=== PATIENT | female | born 1980 | race Caucasian/White ===

== ENCOUNTER → 2017-05-18 | Outpatient (CLI) | payer SELFPAY | LOC: OD 15:00 | PROVIDERS: ATTEND Nurse Practitioner Acute Care | DX: M54.5 Low back pain (principal); N30.00 Acute cystitis without hematuria | CPT/HCPCS: 87086; 87088; 87186 ==

== ENCOUNTER 2017-10-26 13:54 | Emergency (ER) | payer BC ==
[2017-10-26] MEDS ORDERED: KETOROLAC TROMETHAMINE INJ/PF 30 MG/1 ML SDV IV ONE (14:25)
[2017-10-26] MEDS ORDERED: ONDANSETRON HCL INJ/PF 4 MG/2 ML SDV IV ONE (15:01)
[2017-10-26 15:03] LABS: ABSOLUTE EOSINOPHILS # (AUTO) 0.1 10^3/uL (0.0-0.6); ABSOLUTE LYMPHOCYTES (AUTO) 2.5 10^3/uL (0.5-4.7); ABSOLUTE MONOCYTES (AUTO) 0.6 10^3/uL (0.1-1.4); ABSOLUTE NEUT (AUTO) 4.3 10^3/uL (1.7-8.2); BASOPHILS % (AUTO) 0.6 % (0-2); EOSINOPHILS % (AUTO) 1.7 % (0-6); HEMATOCRIT 41.6 % (36.0-47.0); HEMOGLOBIN 14.2 g/dL (12.0-15.5); MEAN CORPUSCULAR HEMOGLOBIN 31.7 pg (27.0-33.4); MEAN CORPUSCULAR VOLUME 93 fl (80-97); MONOCYTES % (AUTO) 8.3 % (3-13); PLATELET COUNT 220 10^3/uL (150-450); RED BLOOD COUNT 4.47 10^6/uL (3.72-5.28); SEGMENTED NEUTROPHILS % (AUTO) 56.4 % (42-78); TOTAL CELLS COUNTED % (AUTO) 100 %; WHITE BLOOD COUNT 7.6 10^3/uL (4.0-10.5)
[2017-10-26] MEDS ORDERED: HYDROMORPHONE HCL INJ/PF 2 MG/ML AMPULE IV ONE (15:27)
[2017-10-26 15:29] LABS: ALANINE AMINOTRANSFERASE 23 U/L (9-52); ALBUMIN 4.9 g/dL (3.5-5.0); ALKALINE PHOSPHATASE 58 U/L (38-126); ANION GAP 13 (5-19); ASPARTATE AMINO TRANSFERASE 16 U/L (14-36); BILIRUBIN,DIRECT 0.3 mg/dL (0.0-0.4); BILIRUBIN,TOTAL 0.4 mg/dL (0.2-1.3); BLOOD UREA NITROGEN 16 mg/dL (7-20); CALCIUM 10.3 mg/dL (8.4-10.2); CARBON DIOXIDE 24 mmol/L (22-30); CHLORIDE 107 mmol/L (98-107); GLUCOSE 105 mg/dL (75-110); POTASSIUM 4.3 mmol/L (3.6-5.0); SODIUM 143.7 mmol/L (137-145)
[2017-10-26] MEDS ORDERED: NORMAL SALINE 1000 ML 1,000 ML IV ONE (15:29)
--- NOTE | 2017-10-26 15:29 | ER Document Report ---
ED GI/ - General Chief Complaint: Flank Pain Stated Complaint: FLANK PAIN Time Seen by Provider: 10/26/17 14:24 Mode of Arrival: Ambulatory Information source: Patient Notes: Patient presents complaining of left flank pain that radiates around to left side that started yesterday. Patient states today around 11 AM the pain came very severe which prompted her to have a syncopal episode. Patient states that whenever she has had very severe pain in the past it is caused her to faint previously. Patient also reports nausea and vomiting 3 episodes. Patient states she had diarrhea yesterday. Patient reports decreased urine output. Patient denies any fever. Patient does report some dizziness intermittently. Patient also reports having chest pain that she describes as occasional shocks that lasts for about 2-3 minutes that started yesterday evening. Patient denies any history of coronary artery disease. Patient has a history of kidney stones and suspects the same today. TRAVEL OUTSIDE OF THE [place] IN LAST 30 DAYS: No - HPI Patient complains to provider of: Abdominal pain, Flank pain Onset: Yesterday Timing/Duration: Persistent Quality of pain: Sharp Pain Level: 5 Location: LLQ, Left flank Vaginal bleeding (Compared to normal period): None Associated symptoms: Chest pain, Diarrhea, Dizzy, Nausea, Vomiting. denies: Urinary hesitancy, Urinary frequency, Urinary retention, Urinary urgency Exacerbated by: Denies Relieved by: Denies Similar symptoms previously: Yes - Kidney stones Recently seen / treated by doctor: No - Related Data Allergies/Adverse Reactions: No Known Allergies Allergy (Verified 12/10/13 15:46) Home Medications: ibuprofen, multivitamin Past Medical History - General Information source: Patient - Social History Smoking Status: Never Smoker Chew tobacco use (# tins/day): No Frequency of alcohol use: Rare Drug Abuse: None Occupation: [employer] Family History: Reviewed & Not Pertinent, Other - Nephrolithiasis Patient has suicidal ideation: No Patient has homicidal ideation: No - Past Medical History Cardiac Medical History: Denies: Hx Coronary Artery Disease Renal/ Medical History: Reports: Hx Kidney Stones. Denies: Hx Peritoneal Dialysis Psychiatric Medical History: Reports: Hx Depression Past Surgical History: Reports: Hx Genitourinary Surgery - lithrotripsy, Hx Tonsillectomy, Hx Tubal Ligation - Immunizations Immunizations up to date: Yes Hx Diphtheria, Pertussis, Tetanus Vaccination: Yes Review of Systems - Review of Systems Constitutional: No symptoms reported. denies: Fever, Recent illness EENT: No symptoms reported Cardiovascular: Chest pain, Syncope, Dizziness Respiratory: No symptoms reported. denies: Cough, Short of breath Gastrointestinal: Abdominal pain, Diarrhea, Nausea, Vomiting Genitourinary: Flank pain. denies: Dysuria Female Genitourinary: No symptoms reported Musculoskeletal: Back pain Skin: No symptoms reported Hematologic/Lymphatic: No symptoms reported Neurological/Psychological: No symptoms reported Physical Exam - Vital signs Vitals: Temp Pulse Resp BP Pulse Ox 97.9 F 100 20 130/83 H 98 10/26/17 14:02 10/26/17 14:02 10/26/17 14:02 10/26/17 14:02 10/26/17 14:02 - General General appearance: Alert, Anxious In distress: None - HEENT Head: Normocephalic, Atraumatic Eyes: Normal Conjunctiva: Normal Nasal: Normal Mouth/Lips: Normal Pharynx: Normal Neck: Normal, Supple. No: Lymphadenopathy - Respiratory Respiratory status: No respiratory distress Chest status: Nontender. No: Pain with cough, Pain with deep breathing Breath sounds: Normal. No: Rales, Rhonchi, Stridor, Wheezing Chest palpation: Normal. No: Tender, Ecchymosis - Cardiovascular Rhythm: Regular Heart sounds: S1 appreciated, S2 appreciated Murmur: No - Abdominal Inspection: Normal Distension: No distension Bowel sounds: Normal Tenderness: Tender - LLQ Organomegaly: No organomegaly - Back Back: CVA tenderness - left - Extremities General upper extremity: Normal inspection, Normal ROM General lower extremity: Normal inspection, Normal ROM - Neurological Neuro grossly intact: Yes Cognition: Normal Apolinar Coma Scale Eye Opening: Spontaneous Apolinar Coma Scale Verbal: Oriented Apolinar Coma Scale Motor: Obeys Commands [place] Coma Scale Total: 15 - Psychological Associated symptoms: Anxious - Skin Skin Temperature: Warm Skin Moisture: Dry Skin Color: Normal Course - Re-evaluation Re-evalutation: 10/26/17 17:48 Reviewed patient's diagnostic test results with her. Patient tearful stating that she feels as though she is going to be getting a urinary tract infection. Attempted to reassure patient that she has no signs concerning for infection. Patient without any fever, leukocytosis or findings concerning for UTI on urinalysis. Patient continues with left flank tenderness. Patient advised that she does not have any obstructive kidney stones at this time. Patient advised that she does have bilateral renal stones and that she should follow-up with a urologist for further evaluation. Patient nontoxic in appearance, no concern for sepsis. Patient denies any chest pain at this time. The patient has atypical chest pain as the patient's chest pain is not suggestive of pulmonary embolus, cardiac ischemia, aortic dissection, or other serious etiology. Given the extremely low risk of these diagnoses for the test in evaluation for these possibilities does not appear to be indicated at this time. Patient has been instructed to return if the symptoms worsen or change in any way. - Vital Signs Vital signs: Temp Pulse Resp BP Pulse Ox 97.9 F 100 17 118/75 95 10/26/17 14:02 10/26/17 18:32 10/26/17 18:32 10/26/17 18:32 10/26/17 18:32 - Laboratory Result Diagrams: 10/26/17 14:47 10/26/17 14:47 Laboratory results interpreted by me: 10/26/17 14:47 Calcium 10.3 H Labs- Entire Visit 10/26/17 10/26/17 10/26/17 14:47 14:47 14:47 WBC 7.6 RBC 4.47 Hgb 14.2 Hct 41.6 MCV 93 MCH 31.7 MCHC 34.0 RDW 14.0 Plt Count 220 Seg Neutrophils % 56.4 Lymphocytes % 33.0 Monocytes % 8.3 Eosinophils % 1.7 Basophils % 0.6 Absolute Neutrophils 4.3 Absolute Lymphocytes 2.5 Absolute Monocytes 0.6 Absolute Eosinophils 0.1 Absolute Basophils 0.0 Sodium 143.7 Potassium 4.3 Chloride 107 Carbon Dioxide 24 Anion Gap 13 BUN 16 Creatinine 0.91 Est GFR ( Amer) > 60 Est GFR (Non-Af Amer) > 60 Glucose 105 Calcium 10.3 H Total Bilirubin 0.4 Direct Bilirubin 0.3 Neonat Total Bilirubin Not Reportable Neonat Direct Bilirubin Not Reportable Neonat Indirect Bili Not Reportable AST 16 ALT 23 Alkaline Phosphatase 58 Troponin I Total Protein 7.0 Albumin 4.9 Serum HCG, Qual NEGATIVE Urine Color Urine Appearance Urine pH Ur Specific [place] Urine Protein Urine Glucose (UA) Urine Ketones Urine Blood Urine Nitrite Urine Bilirubin Urine Urobilinogen Ur Leukocyte Esterase Urine WBC (Auto) Urine RBC (Auto) Urine Bacteria (Auto) Squamous Epi Cells Auto Urine Mucus (Auto) Urine Ascorbic Acid 10/26/17 10/26/17 14:47 14:47 WBC RBC Hgb Hct MCV MCH MCHC RDW Plt Count Seg Neutrophils % Lymphocytes % Monocytes % Eosinophils % Basophils % Absolute Neutrophils Absolute Lymphocytes Absolute Monocytes Absolute Eosinophils Absolute Basophils Sodium Potassium Chloride Carbon Dioxide Anion Gap BUN Creatinine Est GFR ( Amer) Est GFR (Non-Af Amer) Glucose Calcium Total Bilirubin Direct Bilirubin Neonat Total Bilirubin Neonat Direct Bilirubin Neonat Indirect Bili AST ALT Alkaline Phosphatase Troponin I < 0.012 Total Protein Albumin Serum HCG, Qual Urine Color YELLOW Urine Appearance SLIGHTLY-CLOUDY Urine pH 8.0 Ur Specific Stanford 1.012 Urine Protein NEGATIVE Urine Glucose (UA) NEGATIVE Urine Ketones NEGATIVE Urine Blood NEGATIVE Urine Nitrite NEGATIVE Urine Bilirubin NEGATIVE Urine Urobilinogen NEGATIVE Ur Leukocyte Esterase NEGATIVE Urine WBC (Auto) 3 Urine RBC (Auto) 1 Urine Bacteria (Auto) 1+ Squamous Epi Cells Auto 4 Urine Mucus (Auto) OCC Urine Ascorbic Acid NEGATIVE - Diagnostic Test Radiology reviewed: Reports reviewed Discharge - Discharge Clinical Impression: Flank pain, Renal stone Nausea & vomiting Qualifiers: Vomiting type: unspecified Vomiting Intractability: non-intractable Qualified Code(s): R11.2 - Nausea with vomiting, unspecified Chest pain Qualifiers: Chest pain type: unspecified Qualified Code(s): R07.9 - Chest pain, unspecified Condition: Stable Disposition: HOME, SELF-CARE Instructions: Chest Pain of Unclear Cause ([facility]), Flank Pain ([facility]), Intravenous (IV) Fluids ([facility]), Oral Narcotic Medication ([facility]), Toradol Injection ([facility]), Vomiting ([facility]) Additional Instructions: Return immediately for any new or worsening symptoms Followup with your primary care provider, call tomorrow to make a followup appointment Follow-up with a urologist for further evaluation of renal stones Follow-up with a content designer for further evaluation of chest pain Prescriptions: Hydrocodone/Acetaminophen [[place] 5-325 Tablet] 1 each PO Q4 PRN #10 tablet PRN Reason: Ondansetron HCl [Zofran 4 mg Tablet] 1 - 2 tab PO Q6 PRN #15 tablet PRN Reason: Forms: Return to Work Referrals: [facility] [Provider Group] - Follow up as needed [facility] [Provider Group] - Follow up as needed SEGUNDO KLELY MD [ACTIVE STAFF] - Follow up as needed [facility] [Provider Group] - Follow up as needed
[2017-10-26 15:52] LABS: APPEARANCE,URINE SLIGHTLY-CLOUDY; BILIRUBIN,URINE NEGATIVE (NEGATIVE); COLOR,URINE YELLOW; GLUCOSE, URINE NEGATIVE (NEGATIVE); KETONES,URINE NEGATIVE (NEGATIVE); LEUKOCYTE ESTERASE,URINE NEGATIVE (NEGATIVE); NITRITE,URINE NEGATIVE (NEGATIVE); PROTEIN,URINE NEGATIVE (NEGATIVE); URINE SPECIFIC GRAVITY 1.012; UROBILINOGEN,URINE NEGATIVE mg/dL (<2.0)
--- NOTE | 2017-10-26 16:07 | RADIOLOGY REPORT (SQ) ---
EXAM DESCRIPTION: CT LTD RENAL STONE PROTOCOL ON COMPLETED DATE/TIME: 10/26/2017 3:52 pm REASON FOR STUDY: left flank/abd pain COMPARISON: 03/09/2016. TECHNIQUE: CT scan of the abdomen and pelvis performed without intravenous or oral contrast. Images reviewed with lung, soft tissue, and bone windows. Reconstructed coronal and sagittal MPR images revi ewed. All images stored on PACS. All CT scanners at this facility use dose modulation, iterative reconstruction, and/or weight based d osing when appropriate to reduce radiation dose to as low as reasonably achievable (ALARA). [facility]: Dose Right [facility]: CareDose [facility]: Dose Right [facility]: Teradose 4D [facility]: Smart Photobucket RADIATION DOSE: CT Rad equipment meets quality standard of care and radiation dose reduction techniq ues were employed. CTDIvol: 6.7 mGy. DLP: 362 mGy-cm.mGy. LIMITATIONS: None. FINDINGS: LOWER CHEST: No significant findings. No nodules or infiltrates. NON-CONTRASTED LIVER, SPLEEN, ADRENALS: Evaluation limited by lack of IV contrast. No identified sign ificant masses. PANCREAS: No masses. No peripancreatic inflammatory changes. GALLBLADDER: No identified stones by CT criteria. No inflammatory changes to suggest cholecystitis. RIGHT KIDNEY AND URETER: Areas of cortical scarring. No suspicious masses. Assessment limited by lac k of IV contrast. Several small calyceal calculi. No ureteral calculus. No hydronephrosis or hyd roureter. LEFT KIDNEY AND URETER: No suspicious masses. Assessment limited by lack of IV contrast. Several ca lyceal calculi. No ureteral calculus. No hydronephrosis or hydroureter. AORTA AND RETROPERITONEUM: No aneurysm. No retroperitoneal masses or adenopathy. BOWEL AND PERITONEAL CAVITY: No obvious masses or inflammatory changes. No free fluid. APPENDIX: Normal. PELVIS, BLADDER, AND ABDOMINAL WALL:No abnormal masses. No free fluid. Bladder normal. BONES: No significant findings. OTHER: No other significant finding. IMPRESSION: 1. NONOBSTRUCTING CALYCEAL CALCULI IN BOTH KIDNEYS. NO URETERAL CALCULI OR HYDRONEPHROSIS. AREAS OF CHRONIC CORTICAL SCARRING IN THE RIGHT KIDNEY. 2. NO OTHER SIGNIFICANT OR ACUTE PROCESS IN THE ABDOMEN OR PELVIS. COMMENT: Quality ID # [id number]: Final reports with documentation of one or more dose reduction techniques (e.g., Automated exposure control, adjustment of the mA and/or kV according to patient size, use of iterative reconstruction technique) TECHNICAL DOCUMENTATION: JOB ID: [id number] [employer]- All Rights Reserved Reading location - IP/workstation name: [email or web address]
--- NOTE | 2017-10-26 16:09 | RADIOLOGY REPORT (SQ) ---
EXAM DESCRIPTION: CHEST 2 VIEWS COMPLETED DATE/TIME: 10/26/2017 4:02 pm REASON FOR STUDY: cp COMPARISON: 02/13/2014. EXAM PARAMETERS: NUMBER OF VIEWS: two views TECHNIQUE: Digital Frontal and Lateral radiographic views of the chest acquired. RADIATION DOSE: NA LIMITATIONS: none FINDINGS: LUNGS AND PLEURA: No opacities, masses or pneumothorax. No pleural effusion. MEDIASTINUM AND HILAR STRUCTURES: No masses or contour abnormalities. HEART AND VASCULAR STRUCTURES: Heart normal size. No evidence for failure. BONES: No acute findings. HARDWARE: None in the chest. OTHER: No other significant finding. IMPRESSION: NO ACUTE RADIOGRAPHIC FINDING IN THE CHEST. TECHNICAL DOCUMENTATION: JOB ID: [id number] [employer]- All Rights Reserved Reading location - IP/workstation name: [email or web address]
--- NOTE | 2017-10-26 16:49 | ER Document Report ---
ED Medical Screen (RME) - General Chief Complaint: Flank Pain Stated Complaint: FLANK PAIN Time Seen by Provider: 10/26/17 14:24 Notes: Patient is a 36-year-old female who presents to the emergency department today with complaints of left-sided flank pain. Patient states the pain wraps around to her left lower quadrant. Patient states she has had associated vomiting and nausea with diarrhea and chills. I have greeted and performed a rapid initial assessment of this patient. A comprehensive ED assessment and evaluation of the patient, analysis of test results, and completion of the medical decision making process will be conducted by additional ED providers. Review of systems: Constitutional: No symptoms reported EENT: No symptoms reported Cardiovascular: No symptoms reported Respiratory: No symptoms reported Gastrointestinal: Nausea, Vomiting, and diarrhea Genitourinary: Left flank pain Musculoskeletal: No symptoms reported Skin: No symptoms reported Hematologic/Lymphatic: No symptoms reported Neurological/Psychological: No symptoms reported Yes All other systems reviewed and negative Physical Exam: General: Alert, appears well. HEENT: Normocephalic. Atraumatic. PERRLA. Extraocular movements intact. Oropharynx clear. Neck: Supple. Respiratory: No respiratory distress. Abdominal: Normal Inspection. No distension. Extremities: Moves all four extremities. Neurological: Normal cognition. AAOx4. Normal speech. Psychological: Normal affect. Normal Mood. Skin: Warm. Dry. Normal color. TRAVEL OUTSIDE OF THE [place] IN LAST 30 DAYS: No - Related Data Allergies/Adverse Reactions: No Known Allergies Allergy (Verified 12/10/13 15:46) Home Medications: ibuprofen, multivitamin Past Medical History - Social History Chew tobacco use (# tins/day): No Frequency of alcohol use: Rare Drug Abuse: None - Past Medical History Cardiac Medical History: Reports: Hx Hypercholesterolemia Renal/ Medical History: Reports: Hx Kidney Stones. Denies: Hx Peritoneal Dialysis Psychiatric Medical History: Reports: Hx Depression Past Surgical History: Reports: Hx Genitourinary Surgery - lithrotripsy, Hx Tonsillectomy, Hx Tubal Ligation - Immunizations Immunizations up to date: Yes Hx Diphtheria, Pertussis, Tetanus Vaccination: Yes Physical Exam - Vital signs Vitals: Temp Pulse Resp BP Pulse Ox 97.9 F 100 20 130/83 H 98 10/26/17 14:02 10/26/17 14:02 10/26/17 14:02 10/26/17 14:02 10/26/17 14:02 Course - Vital Signs Vital signs: Temp Pulse Resp BP Pulse Ox 97.9 F 100 20 130/83 H 98 10/26/17 14:02 10/26/17 14:02 10/26/17 14:02 10/26/17 14:02 10/26/17 14:02 - Laboratory Result Diagrams: 10/26/17 14:47 10/26/17 14:47 Laboratory results interpreted by me: 10/26/17 14:47 Calcium 10.3 H
[2017-10-26 18:39] VITALS: BP 118/75
--- NOTE | 2017-10-26 23:02 | EKG REPORT ---
SEVERITY:- NORMAL ECG - SINUS RHYTHM : Confirmed by: Rad Golden 26-Oct-2017 23:01:17
== END 2017-10-26 18:32 | disposition home or self-care (01) ==
LOC: ER 13:54
DX: N20.0 Calculus of kidney (principal); R10.32 Left lower quadrant pain; R11.2 Nausea with vomiting, unspecified; R07.9 Chest pain, unspecified; R19.7 Diarrhea, unspecified; E78.00 Pure hypercholesterolemia, unspecified; Z87.442 Personal history of urinary calculi; Z98.51 Tubal ligation status
CPT/HCPCS: 93005; 99285; 96361; 96374; 96375; 36415; 84703; 85025; 80053; 81001; 84484; 71046; 76380; 93010; J1885; J1170; J2405; J7030

== ENCOUNTER 2018-08-27 17:29 | Emergency (ER) | payer SELFPAY ==
--- NOTE | 2018-08-27 20:37 | ER Document Report ---
ED Medical Screen (RME) - General Chief Complaint: Pelvic Pain Stated Complaint: FEVER, PELVIC PAIN, VAGINAL DISCHARGE Time Seen by Provider: 08/27/18 20:32 Notes: Patient is a 37-year-old female that presents to the emergency department for ief complaint of vaginal bleeding and discharge after colposcopy. Patient states she had this procedure done on , with cervical biopsy, and has been having cramping, and vaginal bleeding and discharge, the bleeding has seemed to slow down, she called the health department they advised her to come to the emergency department.. ROS: Other than noted above, the 12 point review of systems was reviewed with the patient and were negative, all pertinent findings are included in the HPI. PHYSICAL EXAMINATION: Vital signs reviewed. GENERAL: Well-appearing, well-nourished and in no acute distress. HEAD: Atraumatic, normocephalic. EYES: Pupils equal round extraocular movements intact, conjunctiva are normal. ENT: Nares patent NECK: Normal range of motion CV: Heart regular rate and rhythm LUNGS: No respiratory distress Musculoskeletal: Normal range of motion NEUROLOGICAL: Normal speech PSYCH: Normal mood, normal affect. MDM: Patient seen and examined for rapid initial assessment. Vital signs reviewed. A comprehensive ED assessment and evaluation of the patient, analysis of test results and completion of the medical decision making process will be conducted by additional ED providers. *Note is created using voice recognition software and may contain spelling, syntax or grammatical errors. TRAVEL OUTSIDE OF THE [place] IN LAST 30 DAYS: No - Related Data Allergies/Adverse Reactions: No Known Allergies Allergy (Verified 12/10/13 15:46) Past Medical History - Past Medical History Cardiac Medical History: Reports: Hx Hypercholesterolemia Denies: Hx Coronary Artery Disease Renal/ Medical History: Reports: Hx Kidney Stones. Denies: Hx Peritoneal Dialysis Psychiatric Medical History: Reports: Hx Depression Past Surgical History: Reports: Hx Genitourinary Surgery - lithrotripsy, Hx Tonsillectomy, Hx Tubal Ligation - Immunizations Immunizations up to date: Yes Hx Diphtheria, Pertussis, Tetanus Vaccination: Yes Physical Exam - Vital signs Vitals: Temp Pulse Resp BP Pulse Ox 98.5 F 65 16 116/58 L 99 08/27/18 18:30 08/27/18 18:30 08/27/18 18:30 08/27/18 18:30 08/27/18 18:30 Course - Vital Signs Vital signs: Temp Pulse Resp BP Pulse Ox 98.5 F 65 16 116/58 L 99 08/27/18 18:30 08/27/18 18:30 08/27/18 18:30 08/27/18 18:30 08/27/18 18:30
[2018-08-27] MEDS ORDERED: KETOROLAC TROMETHAMINE 60 MG/2 ML SDV IM ONE (20:38)
[2018-08-27 23:21] LABS: ABSOLUTE BASOPHILS # (AUTO) 0.1 10^3/uL (0.0-0.2); ABSOLUTE EOSINOPHILS # (AUTO) 0.3 10^3/uL (0.0-0.6); ABSOLUTE LYMPHOCYTES (AUTO) 2.8 10^3/uL (0.5-4.7); ABSOLUTE MONOCYTES (AUTO) 0.6 10^3/uL (0.1-1.4); ABSOLUTE NEUT (AUTO) 4.6 10^3/uL (1.7-8.2); BASOPHILS % (AUTO) 1.2 % (0-2); HEMATOCRIT 38.6 % (36.0-47.0); HEMOGLOBIN 13.2 g/dL (12.0-15.5); LYMPHOCYTES % (AUTO) 33.8 % (13-45); MEAN CORPUSCULAR HEMOGLOBIN 32.6 pg (27.0-33.4); MEAN CORPUSCULAR HGB CONC 34.2 g/dL (32.0-36.0); MEAN CORPUSCULAR VOLUME 95 fl (80-97); MONOCYTES % (AUTO) 7.6 % (3-13); PLATELET COUNT 198 10^3/uL (150-450); RED BLOOD COUNT 4.05 10^6/uL (3.72-5.28); RED CELL DISTRIBUTION WIDTH 14.5 % (11.5-14.0); SEGMENTED NEUTROPHILS % (AUTO) 54.4 % (42-78); TOTAL CELLS COUNTED % (AUTO) 100 %; WHITE BLOOD COUNT 8.4 10^3/uL (4.0-10.5)
[2018-08-27 23:22] LABS: APPEARANCE,URINE CLOUDY; BILIRUBIN,URINE NEGATIVE (NEGATIVE); COLOR,URINE YELLOW; GLUCOSE, URINE NEGATIVE (NEGATIVE); KETONES,URINE TRACE mg/dL (NEGATIVE); LEUKOCYTE ESTERASE,URINE MODERATE (NEGATIVE); NITRITE,URINE NEGATIVE (NEGATIVE); PROTEIN,URINE NEGATIVE (NEGATIVE); URINE SPECIFIC GRAVITY 1.023; UROBILINOGEN,URINE NEGATIVE mg/dL (<2.0)
[2018-08-27 23:36] LABS: ALANINE AMINOTRANSFERASE 24 U/L (9-52); ALBUMIN 4.3 g/dL (3.5-5.0); ALKALINE PHOSPHATASE 53 U/L (38-126); ANION GAP 8 (5-19); ASPARTATE AMINO TRANSFERASE 17 U/L (14-36); BILIRUBIN,DIRECT 0.1 mg/dL (0.0-0.4); BILIRUBIN,TOTAL 0.4 mg/dL (0.2-1.3); BLOOD UREA NITROGEN 20 mg/dL (7-20); CALCIUM 9.7 mg/dL (8.4-10.2); CARBON DIOXIDE 27 mmol/L (22-30); CHLORIDE 105 mmol/L (98-107); GLUCOSE 117 mg/dL (75-110); POTASSIUM 3.9 mmol/L (3.6-5.0); SODIUM 139.8 mmol/L (137-145); TOTAL PROTEIN 6.4 g/dL (6.3-8.2)
--- NOTE | 2018-08-28 00:28 | RADIOLOGY REPORT (SQ) ---
EXAM DESCRIPTION: US TRANSVAGINAL COMPLETED DATE/TME: 08/27/2018 22:53 CLINICAL HISTORY: 37 years, Female, Pelvic pain COMPARISON:None. TECHNIQUE: Grayscale and Doppler sonogram of the pelvis. Transvaginal technique was used for better evaluation of the pelvic viscera FINDINGS: The uterus measures 8.4 x 5.8 x 4.9 cm. There is mild diffuse heterogeneous appearance of the myometrium. There is a round nearly well-defined hypoechoic area in the lower uterine segment/cervix measuring approximately 1.6 x 1.4 x 1.2 cm. Endometrial stripe: 6 mm in thickness, normal. Right ovary: Measures 3.9 x 2.5 x 2.1 cm. Normal doppler flow. No mass lesion. Left ovary: Measures 3 x 2.2 x 2.1 cm. Normal doppler flow. No mass lesion. Free fluid: None. IMPRESSION: Round fairly well-defined hypoechoic area in the lower uterine segment probably represents a fibroid. There is mild diffuse heterogeneous appearance of the uterus. No defined fluid collections.
[2018-08-28] MEDS ORDERED: MORPHINE SULFATE 10 MG/ML INJ IV ONE (01:51)
[2018-08-28] MEDS ORDERED: MORPHINE SULFATE 10 MG/ML INJ IM ONE (01:56)
[2018-08-28 02:31] LABS: T.VAGINALIS (WET MOUNT) NO TRICHOMONAS SEEN; WBCS (WET MOUNT) 1+ WBCS SEEN; YEAST (WET MOUNT) NO YEAST SEEN
[2018-08-28 02:32] LABS: EPITHELIALS (WET MOUNT) 3+ EPITHELIALS SEEN; RBCS (WET MOUNT) NO RBCS SEEN
--- NOTE | 2018-08-28 03:21 | ER Document Report ---
ED GI/ - General Chief Complaint: Pelvic Pain Stated Complaint: FEVER, PELVIC PAIN, VAGINAL DISCHARGE Time Seen by Provider: 08/28/18 01:31 Mode of Arrival: Ambulatory Information source: Patient Notes: HISTORY OF PRESENT ILLNESS: Patient is a 37-year-old female with a past medical history of recent colposcopy with cervical biopsy approximately 4-5 days ago who presents with lower abdomin al cramping as well as vaginal discharge. Location: Lower pelvic Onset: Gradual Provocation: None Quality: Cramping Radiation: None Severity: Mild to moderate Timing: Constant LMP: 2 weeks ago Vaginal bleeding: None History of STD: None REVIEW OF SYSTEMS: CONSTITUTIONAL : Denies fever or chills, no sweats. Denies recent illness. EENT: Denies eye, ear, throat, or mouth pain or symptoms. Denies nasal or sinus congestion. CARDIOVASCULAR: Denies chest pain. RESPIRATORY: Denies cough, cold, or chest congestion. Denies shortness of breath, difficulty breathing, or wheezing. GASTROINTESTINAL: Denies abdominal pain. Denies nausea, vomiting, or diarrhea. Denies constipation. GENITOURINARY: Denies difficulty urinating, painful urination, burning, frequency, or blood in urine. Positive for vaginal discharge but negative for vaginal bleeding, abnormal or irregular periods. MUSCULOSKELETAL: Denies neck or back pain or joint pain or swelling. SKIN: Denies rash or skin lesions. HEMATOLOGIC : Denies easy bruising or bleeding. LYMPHATIC: Denies swollen, enlarged glands. NEUROLOGICAL: Denies altered mental status or loss of consciousness. Denies headache. Denies weakness or paralysis or loss of use of either side. Denies problems with gait or speech. Denies sensory or motor loss. PSYCHIATRIC: Denies anxiety or stress or depression. All other systems reviewed and negative. PHYSICAL EXAMINATION: GENERAL: Well-appearing, well-nourished and in no acute distress. HEAD: Atraumatic, normocephalic. No scalp deformity, depression, or crepitance. EYES: Pupils are 3 mm and equal/round/reactive to light, extraocular movements intact, sclera anicteric, conjunctiva are normal. ENT: Nares patent bilaterally, oropharynx clear without exudates or palatal petechia. Moist mucous membranes. No tonsil hypertrophy. NECK: Normal range of motion, supple without lymphadenopathy. LUNGS: Breath sounds present, equal, and clear to auscultation bilaterally. No wheezes, rales, or rhonchi. HEART: Regular rate and rhythm without murmurs, rubs, or gallops. 2+ peripheral pulses. Normal capillary refill. ABDOMEN: Soft, nontender, nondistended. Normoactive bowel sounds. No guarding, no rebound. No masses appreciated. BACK: Normal contour, no midline tenderness. Rectal exam deferred. PELVC: Normal external genitalia, no lesions, closed cervical loss was slightly friable areas and clear discharge, no bleeding. EXTREMITIES: Normal range of motion, no pitting or edema. No cyanosis. NEUROLOGICAL: No focal neurological deficits. Moves all extremities spontaneously and on command. PSYCH: Normal mood, normal affect. No suicidal thoughts/ideations. No homocidal thoughts/ideations. No hallucinations. SKIN: Warm, dry, normal turgor, no rashes or lesions noted. ASSESSMENT AND PLAN: This patient is a 37-year-old female who presents with vaginal discharge 5 days after colposcopy with cervical biopsy. 1. Will labs, urine, wet prep/GC/Chlamydia, pelvic ultrasound, and reassess. 2. Will give IV morphine for pain control. TRAVEL OUTSIDE OF THE [place] IN LAST 30 DAYS: No - Related Data Allergies/Adverse Reactions: No Known Allergies Allergy (Verified 12/10/13 15:46) Past Medical History - General Information source: Patient - Social History Smoking Status: Current Every Day Smoker Chew tobacco use (# tins/day): No Drug Abuse: None Lives with: Family Family History: Reviewed & Not Pertinent, Other - Nephrolithiasis Patient has suicidal ideation: No Patient has homicidal ideation: No - Past Medical History Cardiac Medical History: Reports: Hx Hypercholesterolemia Denies: Hx Coronary Artery Disease Pulmonary Medical History: Reports: None EENT Medical History: Reports: None Neurological Medical History: Reports: None Endocrine Medical History: Reports: None Renal/ Medical History: Reports: Hx Kidney Stones. Denies: Hx Peritoneal Dialysis Malignancy Medical History: Reports: None GI Medical History: Reports: None Musculoskeletal Medical History: Reports None Skin Medical History: Reports None Psychiatric Medical History: Reports: Hx Depression Traumatic Medical History: Reports: None Infectious Medical History: Reports: None Past Surgical History: Reports: Hx Genitourinary Surgery - lithrotripsy, Hx Tonsillectomy, Hx Tubal Ligation - Immunizations Immunizations up to date: Yes Hx Diphtheria, Pertussis, Tetanus Vaccination: Yes Physical Exam - Vital signs Vitals: Temp Pulse Resp BP Pulse Ox 98.5 F 65 16 116/58 L 99 08/27/18 18:30 08/27/18 18:30 08/27/18 18:30 08/27/18 18:30 08/27/18 18:30 Course - Re-evaluation Re-evalutation: 08/28/18 04:10 Ultrasound does not show evidence of abscess or other intrauterine pathology other than a simple fibroid. Wet prep is negative for trichomoniasis, gonorrhea, and chlamydia. Patient will be discharged home with return precautions and follow-up with her [facility]PERATOR. Patient voices both understanding and agreeing with the plan. - Vital Signs Vital signs: Temp Pulse Resp BP Pulse Ox 98.0 F 62 15 98/47 L 97 08/28/18 00:20 08/28/18 00:20 08/28/18 00:20 08/28/18 00:20 08/28/18 00:20 - Laboratory Result Diagrams: 08/27/18 23:12 08/27/18 23:12 Laboratory results interpreted by me: 08/27/18 08/27/18 08/27/18 21:05 23:12 23:12 RDW 14.5 H Glucose 117 H Urine Ketones TRACE H Urine Blood LARGE H Ur Leukocyte Esterase MODERATE H - Diagnostic Test Radiology reviewed: Image reviewed, Reports reviewed Discharge - Discharge Clinical Impression: Vaginal discharge Condition: Good Disposition: HOME, SELF-CARE Instructions: Pelvic Pain ([facility]) Additional Instructions: You have been evaluated in the Emergency Department for pelvic pain and discharge. All of your labs, and an ultrasound, have been normal. This could be related to your recent procedure, therefore you will be provided with medications and will need to follow-up with your [facility]PER[facility] as soon as you can. Return to the Emergency Department if you experience worsening pain, worsening discharge, high fevers, or any other concerning symptoms. Prescriptions: Tramadol HCl [Ultram 50 mg Tablet] 50 mg PO Q6HP PRN #28 tablet PRN Reason: Doxycycline Hyclate 100 mg PO BID #20 capsule Print Language: Faroese
[2018-08-28 03:55] LABS: CHLAM PCR NOT DETECTED (NOT DETECT); GON PCR NOT DETECTED (NOT DETECT)
[2018-08-28 04:32] VITALS: BP 101/60
== END 2018-08-28 04:31 | disposition home or self-care (01) ==
LOC: ER 17:29
DX: N89.8 Other specified noninflammatory disorders of vagina (principal); D25.9 Leiomyoma of uterus, unspecified; R10.2 Pelvic and perineal pain; F17.200 Nicotine dependence, unspecified, uncomplicated; Z98.890 Other specified postprocedural states; Z87.442 Personal history of urinary calculi
CPT/HCPCS: 99284; 96372; 36415; 87210; 85025; 80053; 81001; 87491; 87591; 76830; J1885; J2270

== ENCOUNTER → 2018-09-07 | Outpatient (CLI) | payer SELFPAY ==
[2018-09-07 12:16] LABS: HEMOGLOBIN 13.4 g/dL (12.0-15.5); MEAN CORPUSCULAR HEMOGLOBIN 32.4 pg (27.0-33.4); MEAN CORPUSCULAR HGB CONC 34.4 g/dL (32.0-36.0); MEAN CORPUSCULAR VOLUME 94 fl (80-97); PLATELET COUNT 199 10^3/uL (150-450); RED BLOOD COUNT 4.13 10^6/uL (3.72-5.28); RED CELL DISTRIBUTION WIDTH 14.8 % (11.5-14.0)
[2018-09-07 12:21] LABS: WHITE BLOOD COUNT 5.9 10^3/uL (4.0-10.5)
[2018-09-07 12:34] LABS: ANION GAP 8 (5-19); BLOOD UREA NITROGEN 12 mg/dL (7-20); CARBON DIOXIDE 25 mmol/L (22-30); CHLORIDE 110 mmol/L (98-107); GLUCOSE 95 mg/dL (75-110); POTASSIUM 4.5 mmol/L (3.6-5.0); SODIUM 142.6 mmol/L (137-145)
== END ==
LOC: LAB 12:01
PROVIDERS: ATTEND Nurse Practitioner Primary Care
DX: N12 Tubulo-interstitial nephritis, not specified as acute or chronic (principal)
CPT/HCPCS: 36415; 80048; 85027

== ENCOUNTER 2018-10-01 21:36 | Emergency (ER) | payer SELFPAY ==
[2018-10-01] MEDS ORDERED: FENTANYL CITRATE INJ/PF 100 MCG/2 ML AMPUL IV ONE (22:07)
[2018-10-01] MEDS ORDERED: ONDANSETRON HCL INJ/PF 4 MG/2 ML SDV IV ONE (22:07)
--- NOTE | 2018-10-01 22:10 | ER Document Report ---
ED Medical Screen (RME) - General Chief Complaint: Possible Kidney Stone Stated Complaint: FLANK PAIN Time Seen by Provider: 10/01/18 22:06 Primary Care Provider: LEELEE GUERRA FNP-C [Primary Care Provider] - Follow up as needed Notes: Extensive history of kidney stones, stated has L flank pain, nausea, vomiting. ABX 2 weeks ago for UTI. I have greeted and performed a rapid initial assessment of this patient. A comprehensive ED assessment and evaluation of the patient, analysis of test results and completion of the medical decision making process will be conducted by additional ED providers. TRAVEL OUTSIDE OF THE [place] IN LAST 30 DAYS: No - Related Data Allergies/Adverse Reactions: No Known Allergies Allergy (Verified 12/10/13 15:46) Past Medical History - Past Medical History Cardiac Medical History: Reports: Hx Hypercholesterolemia Denies: Hx Coronary Artery Disease Renal/ Medical History: Reports: Hx Kidney Stones. Denies: Hx Peritoneal Dialysis Psychiatric Medical History: Reports: Hx Depression Past Surgical History: Reports: Hx Genitourinary Surgery - lithrotripsy, Hx Tonsillectomy, Hx Tubal Ligation - Immunizations Immunizations up to date: Yes Hx Diphtheria, Pertussis, Tetanus Vaccination: Yes Doctor's Discharge - Discharge Referrals: LEELEE GUERRA FNP-C [Primary Care Provider] - Follow up as needed
[2018-10-02] MEDS ORDERED: FENTANYL CITRATE INJ/PF 100 MCG/2 ML AMPUL ONE (00:22)
[2018-10-02] MEDS ORDERED: ONDANSETRON HCL INJ/PF 4 MG/2 ML SDV ONE (00:23)
[2018-10-02 00:30] LABS: ABSOLUTE BASOPHILS # (AUTO) 0.1 10^3/uL (0.0-0.2); ABSOLUTE EOSINOPHILS # (AUTO) 0.2 10^3/uL (0.0-0.6); ABSOLUTE LYMPHOCYTES (AUTO) 2.9 10^3/uL (0.5-4.7); ABSOLUTE MONOCYTES (AUTO) 0.7 10^3/uL (0.1-1.4); ABSOLUTE NEUT (AUTO) 6.1 10^3/uL (1.7-8.2); BASOPHILS % (AUTO) 0.6 % (0-2); EOSINOPHILS % (AUTO) 1.7 % (0-6); HEMATOCRIT 39.1 % (36.0-47.0); HEMOGLOBIN 13.4 g/dL (12.0-15.5); LYMPHOCYTES % (AUTO) 29.1 % (13-45); MEAN CORPUSCULAR HEMOGLOBIN 32.3 pg (27.0-33.4); MEAN CORPUSCULAR HGB CONC 34.4 g/dL (32.0-36.0); MEAN CORPUSCULAR VOLUME 94 fl (80-97); MONOCYTES % (AUTO) 7.2 % (3-13); PLATELET COUNT 243 10^3/uL (150-450); RED BLOOD COUNT 4.17 10^6/uL (3.72-5.28); RED CELL DISTRIBUTION WIDTH 14.5 % (11.5-14.0); SEGMENTED NEUTROPHILS % (AUTO) 61.4 % (42-78); TOTAL CELLS COUNTED % (AUTO) 100 %; WHITE BLOOD COUNT 9.9 10^3/uL (4.0-10.5)
--- NOTE | 2018-10-02 00:34 | RADIOLOGY REPORT (SQ) ---
EXAM DESCRIPTION: US RETROPERITONEUM COMPLETED DATE/TME: 10/01/2018 22:07 CLINICAL HISTORY: 37 years Female, left flank Comparison: CT, no contrast, October 26, 2017. LIMITATIONS: None. FINDINGS: Indeterminate 3.5 x 2.5 x 2.6 cm prominence of the interpolar right kidney. Cannot exclude an underlying neoplasm. Recommend multiphase contrast CT or MRI of the kidneys. 9 cm right kidney, 12 cm left kidney, bilateral small nephrolithiasis, right renal cortical scar, and urinary bladder appear otherwise unremarkable. IMPRESSION: 1. Indeterminate 3.5 x 2.5 x 2.6 cm prominence of the interpolar right kidney. Cannot exclude an underlying neoplasm. Recommend multiphase contrast CT or MRI of the kidneys. 2. Bilateral nephrolithiasis.
[2018-10-02 00:46] LABS: ALANINE AMINOTRANSFERASE 19 U/L (9-52); ALBUMIN 4.5 g/dL (3.5-5.0); ALKALINE PHOSPHATASE 70 U/L (38-126); ANION GAP 9 (5-19); ASPARTATE AMINO TRANSFERASE 17 U/L (14-36); BILIRUBIN,DIRECT 0.2 mg/dL (0.0-0.4); BILIRUBIN,TOTAL 0.2 mg/dL (0.2-1.3); BLOOD UREA NITROGEN 17 mg/dL (7-20); CALCIUM 10.4 mg/dL (8.4-10.2); CARBON DIOXIDE 26 mmol/L (22-30); CHLORIDE 105 mmol/L (98-107); GLUCOSE 124 mg/dL (75-110); POTASSIUM 3.9 mmol/L (3.6-5.0); SODIUM 140.3 mmol/L (137-145); TOTAL PROTEIN 7.2 g/dL (6.3-8.2)
[2018-10-02] MEDS ORDERED: FENTANYL CITRATE INJ/PF 100 MCG/2 ML AMPUL IV ONE (03:19)
[2018-10-02 03:56] LABS: APPEARANCE,URINE TURBID; BILIRUBIN,URINE NEGATIVE (NEGATIVE); COLOR,URINE YELLOW; GLUCOSE, URINE NEGATIVE (NEGATIVE); KETONES,URINE NEGATIVE (NEGATIVE); LEUKOCYTE ESTERASE,URINE LARGE (NEGATIVE); NITRITE,URINE NEGATIVE (NEGATIVE); PROTEIN,URINE 100 mg/dL (NEGATIVE); URINE SPECIFIC GRAVITY 1.024; UROBILINOGEN,URINE NEGATIVE mg/dL (<2.0)
[2018-10-02] MEDS ORDERED: KETOROLAC TROMETHAMINE INJ/PF 30 MG/1 ML SDV IV ONE (07:03)
[2018-10-02] MEDS ORDERED: ONDANSETRON HCL INJ/PF 4 MG/2 ML SDV IV ONE (07:03)
[2018-10-02] MEDS ORDERED: MORPHINE SULFATE 10 MG/ML INJ IV ONE (07:03)
--- NOTE | 2018-10-02 07:25 | ER Document Report ---
ED General - General Chief Complaint: Possible Kidney Stone Stated Complaint: FLANK PAIN Time Seen by Provider: 10/01/18 22:06 Primary Care Provider: LEELEE GUERRA FNP-C [NO LOCAL MD] - Follow up as needed TRAVEL OUTSIDE OF THE [place] IN LAST 30 DAYS: No - HPI Patient complains to provider of: Right flank pain Notes: Patient coming in with a history of kidney stones and also UTIs. Patient was seen by provider in triage his notes provided below Extensive history of kidney stones, stated has L flank pain, nausea, vomiting. ABX 2 weeks ago for UTI. Patient states he continues to have some slight nausea hematuria and flank pain. Patient denies any fevers chills. Patient otherwise states she is feeling crappy. Patient is resting comfortably upon my evaluation no signs of any obvious distress. Patient states she has complained of all of her antibiotic courses not have a PCP at this time follows up with a [facility] [place] [facility] does not have a urologist. - Related Data Allergies/Adverse Reactions: No Known Allergies Allergy (Verified 12/10/13 15:46) Past Medical History - Social History Smoking Status: Current Every Day Smoker Chew tobacco use (# tins/day): No Frequency of alcohol use: Occasional Drug Abuse: None Family History: Reviewed & Not Pertinent, Other - Nephrolithiasis Patient has suicidal ideation: No Patient has homicidal ideation: No - Past Medical History Cardiac Medical History: Reports: Hx Hypercholesterolemia Denies: Hx Coronary Artery Disease Renal/ Medical History: Reports: Hx Kidney Stones. Denies: Hx Peritoneal Dialysis Psychiatric Medical History: Reports: Hx Depression Past Surgical History: Reports: Hx Genitourinary Surgery - lithrotripsy, Hx Tonsillectomy, Hx Tubal Ligation - Immunizations Immunizations up to date: Yes Hx Diphtheria, Pertussis, Tetanus Vaccination: Yes Review of Systems - Review of Systems Constitutional: No symptoms reported EENT: No symptoms reported Cardiovascular: No symptoms reported Respiratory: No symptoms reported Gastrointestinal: No symptoms reported Genitourinary: Flank pain Female Genitourinary: No symptoms reported Musculoskeletal: No symptoms reported Skin: No symptoms reported Hematologic/Lymphatic: No symptoms reported Neurological/Psychological: No symptoms reported -: Yes All other systems reviewed and negative Physical Exam - Vital signs Vitals: Temp Pulse Resp BP Pulse Ox 98.2 F 87 21 H 113/81 95 10/01/18 22:08 10/01/18 22:08 10/01/18 22:08 10/01/18 22:08 10/01/18 22:08 Interpretation: Normal - General General appearance: Appears well, Alert - HEENT Head: Normocephalic, Atraumatic Eyes: Normal Pupils: PERRL - Respiratory Respiratory status: No respiratory distress Chest status: Nontender Breath sounds: Normal Chest palpation: Normal - Cardiovascular Rhythm: Regular Heart sounds: Normal auscultation Murmur: No - Abdominal Inspection: Normal Distension: No distension Bowel sounds: Normal Tenderness: Nontender Organomegaly: No organomegaly - Back Back: Normal, Nontender - Extremities General upper extremity: Normal inspection, Nontender, Normal color, Normal ROM, Normal temperature General lower extremity: Normal inspection, Nontender, Normal color, Normal ROM, Normal temperature, Normal weight bearing. No: Sofie's sign - Neurological Neuro grossly intact: Yes Cognition: Normal Orientation: AAOx4 Apolinar Coma Scale Eye Opening: Spontaneous Apolinar Coma Scale Verbal: Oriented [place] Coma Scale Motor: Obeys Commands [place] Coma Scale Total: 15 Speech: Normal Motor strength normal: LUE, RUE, LLE, RLE Sensory: Normal - Psychological Associated symptoms: Normal affect, Normal mood - Skin Skin Temperature: Warm Skin Moisture: Dry Skin Color: Normal Course - Re-evaluation Re-evalutation: 10/02/18 13:12 The patient presents with flank pain without signs of peritonitis or other life-threatening or serious etiology. The patient appears stable for discharge and has been instructed to return immediately if the symptoms worsen in any way, or in 8-12hr if not improved for re-evaluation. The patient has been instructed to return if the symptoms worsen or change in any way. Ultrasounds not show any signs of hydronephrosis does show signs of bilateral nephrolithiasis. Patient does have blood in the urine however the sample is contaminated. No fevers no significant white count. Do believe patient more has possibly passed a small kidney stone. Patient will be given pain medications for home did recommend patient follow-up with her medical clinic information was given to our social worker aide to help the patient establish urology care. 10/02/18 13:13 - Vital Signs Vital signs: Temp Pulse Resp BP Pulse Ox 97.9 F 58 L 16 103/60 99 10/02/18 08:15 10/02/18 08:15 10/02/18 08:15 10/02/18 08:15 10/02/18 08:15 - Laboratory Result Diagrams: 10/02/18 00:10 10/02/18 00:10 Laboratory results interpreted by me: 10/02/18 10/02/18 10/02/18 00:10 00:10 03:30 RDW 14.5 H Glucose 124 H Calcium 10.4 H Urine Protein 100 H Urine Blood MODERATE H Ur Leukocyte Esterase LARGE H Discharge - Discharge Clinical Impression: Bilateral nephrolithiasis, Flank pain Condition: Good Instructions: Flank Pain ([facility]), Kidney Stone ([facility]) Additional Instructions: Your ultrasound shows signs of kidney stones in both your kidneys however no signs of an obstructing kidney stone. Urine does have blood in it which may be signs of possible passage of a kidney stone. At this time there is no signs of action or any other worrisome pathology no signs of renal failure. I recommend taking Tylenol Motrin for pain control the Ultram as prescribed for severe pain he may use the Phenergan for nausea I will give your information to our social worker aide to help establish follow-up care return to the ER symptoms worsen follow- up with your primary care. Prescriptions: Ibuprofen [Motrin 600 mg Tablet] 600 mg PO Q8HP PRN #21 tablet PRN Reason: Promethazine HCl [Phenergan 25 mg Tablet] 25 mg PO Q6 #30 tablet Tramadol HCl [Ultram 50 mg Tablet] 50 mg PO ASDIR PRN #20 tablet PRN Reason: Forms: Return to Work Referrals: LEELEE GUERRA FNP-C [NO LOCAL MD] - Follow up as needed
[2018-10-02 08:19] VITALS: BP 103/60
== END 2018-10-02 08:22 | disposition home or self-care (01) ==
LOC: ER 21:36
DX: N20.0 Calculus of kidney (principal); R10.9 Unspecified abdominal pain; F17.200 Nicotine dependence, unspecified, uncomplicated; E78.00 Pure hypercholesterolemia, unspecified; Z87.442 Personal history of urinary calculi; Z87.440 Personal history of urinary (tract) infections; Z98.51 Tubal ligation status
CPT/HCPCS: 96376; 99284; 96374; 96375; 36415; 87086; 85025; 81025; 80053; 81001; 76770; J3010; J1885; J2270; J2405

== ENCOUNTER 2018-10-24 17:23 | Emergency (ER) | payer SELFPAY ==
[2018-10-24] MEDS ORDERED: ONDANSETRON 4 MG TAB.RAPDIS PO ONE (17:49)
--- NOTE | 2018-10-24 17:49 | ER Document Report ---
ED Medical Screen (RME) - General Chief Complaint: Fever Stated Complaint: FEVER Time Seen by Provider: 10/24/18 17:43 TRAVEL OUTSIDE OF THE [place] IN LAST 30 DAYS: No - HPI Notes: 10/24/18 17:47 Patient is a 37-year-old female who presents emergency department planing of vaginal pain, discharge, fever, nausea/vomiting that began over the past couple days. Patient states that she had a LEEP procedure performed a week ago. She does have a past medical history significant for multiple lithotripsies for kidney stones. She has had decreased p.o. intake today. She still urinating normally and having normal bowel movements. Denies STONER, fever, neck pain, URI, CP, SOB, or rash. I have treated and performed a rapid initial assessment of this patient. A comprehensive ED assessment and evaluation of the patient, analysis of test results and completion of medical decision making process will be conducted by additional ED providers. PHYSICAL EXAMINATION: GENERAL: Well-appearing, well-nourished and in no acute distress. A&Ox4. Answers questions appropriately. LUNGS: Breath sounds clear to auscultation bilaterally and equal. No wheezes rales or rhonchi. HEART: Regular rate and rhythm without murmurs, rubs, gallops. ABDOMEN: Soft, nondistended abdomen. No guarding, no rebound. Normal bowel sounds present. No CVA tenderness bilaterally. + lower midline pelvic tenderness (cannot elicit thorough abd exam w/o table, however). - Related Data Allergies/Adverse Reactions: No Known Allergies Allergy (Verified 10/24/18 17:44) Past Medical History - Social History Frequency of alcohol use: Social Drug Abuse: None - Past Medical History Cardiac Medical History: Reports: Hx Hypercholesterolemia Denies: Hx Coronary Artery Disease Renal/ Medical History: Reports: Hx Kidney Stones. Denies: Hx Peritoneal Dialysis Psychiatric Medical History: Reports: Hx Depression Past Surgical History: Reports: Hx Genitourinary Surgery - lithrotripsy, Hx Tonsillectomy, Hx Tubal Ligation - Immunizations Immunizations up to date: Yes Hx Diphtheria, Pertussis, Tetanus Vaccination: Yes Physical Exam - Vital signs Vitals: Temp Pulse Resp BP Pulse Ox 98.3 F 96 16 119/65 98 10/24/18 17:31 10/24/18 17:31 10/24/18 17:31 10/24/18 17:31 10/24/18 17:31 Course - Vital Signs Vital signs: Temp Pulse Resp BP Pulse Ox 98.3 F 96 16 119/65 98 10/24/18 17:31 10/24/18 17:31 10/24/18 17:31 10/24/18 17:31 10/24/18 17:31
[2018-10-24] MEDS ORDERED: KETOROLAC TROMETHAMINE 60 MG/2 ML SDV IM ONE (17:50)
[2018-10-24 18:48] LABS: ABSOLUTE BASOPHILS # (AUTO) 0.1 10^3/uL (0.0-0.2); ABSOLUTE EOSINOPHILS # (AUTO) 0.2 10^3/uL (0.0-0.6); ABSOLUTE LYMPHOCYTES (AUTO) 2.6 10^3/uL (0.5-4.7); ABSOLUTE MONOCYTES (AUTO) 0.8 10^3/uL (0.1-1.4); ABSOLUTE NEUT (AUTO) 5.5 10^3/uL (1.7-8.2); BASOPHILS % (AUTO) 0.8 % (0-2); EOSINOPHILS % (AUTO) 2.4 % (0-6); HEMATOCRIT 38.4 % (36.0-47.0); HEMOGLOBIN 13.2 g/dL (12.0-15.5); LYMPHOCYTES % (AUTO) 28.2 % (13-45); MEAN CORPUSCULAR HEMOGLOBIN 32.6 pg (27.0-33.4); MEAN CORPUSCULAR HGB CONC 34.3 g/dL (32.0-36.0); MEAN CORPUSCULAR VOLUME 95 fl (80-97); MONOCYTES % (AUTO) 8.3 % (3-13); PLATELET COUNT 255 10^3/uL (150-450); RED BLOOD COUNT 4.04 10^6/uL (3.72-5.28); RED CELL DISTRIBUTION WIDTH 14.2 % (11.5-14.0); SEGMENTED NEUTROPHILS % (AUTO) 60.3 % (42-78); TOTAL CELLS COUNTED % (AUTO) 100 %; WHITE BLOOD COUNT 9.1 10^3/uL (4.0-10.5)
[2018-10-24 19:07] LABS: ALANINE AMINOTRANSFERASE 20 U/L (9-52); ALBUMIN 4.3 g/dL (3.5-5.0); ALKALINE PHOSPHATASE 71 U/L (38-126); ANION GAP 6 (5-19); ASPARTATE AMINO TRANSFERASE 16 U/L (14-36); BILIRUBIN,DIRECT 0.2 mg/dL (0.0-0.4); BILIRUBIN,TOTAL 0.4 mg/dL (0.2-1.3); BLOOD UREA NITROGEN 15 mg/dL (7-20); CALCIUM 10.5 mg/dL (8.4-10.2); CARBON DIOXIDE 29 mmol/L (22-30); CHLORIDE 103 mmol/L (98-107); GLUCOSE 99 mg/dL (75-110); POTASSIUM 4.2 mmol/L (3.6-5.0); SODIUM 138.2 mmol/L (137-145)
[2018-10-24 19:13] LABS: APPEARANCE,URINE CLOUDY; BILIRUBIN,URINE NEGATIVE (NEGATIVE); COLOR,URINE YELLOW; GLUCOSE, URINE NEGATIVE (NEGATIVE); KETONES,URINE NEGATIVE (NEGATIVE); LEUKOCYTE ESTERASE,URINE LARGE (NEGATIVE); NITRITE,URINE POSITIVE (NEGATIVE); PROTEIN,URINE 100 mg/dL (NEGATIVE); URINE SPECIFIC GRAVITY 1.019; UROBILINOGEN,URINE NEGATIVE mg/dL (<2.0)
[2018-10-24] MEDS ORDERED: PROMETHAZINE HCL 25 MG TABLET PO ONE (21:22)
--- NOTE | 2018-10-24 23:04 | ER Document Report ---
ED General - General Chief Complaint: Fever Stated Complaint: FEVER Time Seen by Provider: 10/24/18 17:43 Mode of Arrival: Ambulatory Information source: Patient Notes: Patient is a 37-year-old female who presents to the emergency department chief complaint of abnormal discharge. Patient reports that she had a [facility] and has had abnormal discharge with a foul odor since then. She reports she has also been having a fever with vomiting and pelvic pain. TRAVEL OUTSIDE OF THE [place] IN LAST 30 DAYS: No - Related Data Allergies/Adverse Reactions: No Known Allergies Allergy (Verified 10/24/18 17:44) Past Medical History - General Information source: Patient - Social History Smoking Status: Current Every Day Smoker Frequency of alcohol use: Social Drug Abuse: None Family History: Reviewed & Not Pertinent, Other - Nephrolithiasis Patient has suicidal ideation: No Patient has homicidal ideation: No - Past Medical History Cardiac Medical History: Reports: Hx Hypercholesterolemia Denies: Hx Coronary Artery Disease Renal/ Medical History: Reports: Hx Kidney Stones. Denies: Hx Peritoneal Dialysis Psychiatric Medical History: Reports: Hx Depression Past Surgical History: Reports: Hx Genitourinary Surgery - lithrotripsy, Hx Tonsillectomy, Hx Tubal Ligation - Immunizations Immunizations up to date: Yes Hx Diphtheria, Pertussis, Tetanus Vaccination: Yes Review of Systems - Review of Systems Constitutional: Fever EENT: No symptoms reported Cardiovascular: No symptoms reported Respiratory: No symptoms reported Gastrointestinal: Nausea Genitourinary: Dysuria, Frequency Female Genitourinary: Vaginal discharge Musculoskeletal: No symptoms reported Skin: No symptoms reported Hematologic/Lymphatic: No symptoms reported Neurological/Psychological: No symptoms reported Physical Exam - Vital signs Vitals: Temp Pulse Resp BP Pulse Ox 98.3 F 96 16 119/65 98 10/24/18 17:31 10/24/18 17:31 10/24/18 17:31 10/24/18 17:31 10/24/18 17:31 - Notes Notes: PHYSICAL EXAMINATION: GENERAL: Well-appearing, well-nourished and in no acute distress. HEAD: Atraumatic, normocephalic. EYES: Pupils equal round and reactive to light, extraocular movements intact, conjunctiva are normal. ENT: Nares patent, oropharynx clear without exudates. Moist mucous membranes. NECK: Normal range of motion, supple without lymphadenopathy LUNGS: Breath sounds clear to auscultation bilaterally and equal. No wheezes rales or rhonchi. HEART: Regular rate and rhythm without murmurs ABDOMEN: Soft, nontender, nondistended abdomen. No guarding, no rebound. No masses appreciated. No CVA tenderness. Female : Normal external genitalia, no cervical motion tenderness or adnexal tenderness, whitish-yellow discharge from the cervix. Musculoskeletal: Normal range of motion, no pitting or edema. No cyanosis. NEUROLOGICAL: Cranial nerves grossly intact. Normal speech, normal gait. Normal sensory, motor exams PSYCH: Normal mood, normal affect. SKIN: Warm, Dry, normal turgor, no rashes or lesions noted. Course - Re-evaluation Re-evalutation: Labs as recorded. Patient has both a urinary tract infection as well as bacterial vaginosis. Patient will be started on oral antibiotics. She will also be given Phenergan for her nausea. Patient encouraged to return to the emergency department if she develops worsening symptoms, back pain, fever or pe rsistent vomiting. Patient verbalizes understanding and agreement with plan. - Vital Signs Vital signs: Temp Pulse Resp BP Pulse Ox 98.1 F 71 16 102/58 L 100 10/24/18 23:49 10/24/18 23:49 10/24/18 23:49 10/24/18 23:49 10/24/18 23:49 - Laboratory Result Diagrams: 10/24/18 18:39 10/24/18 18:39 Laboratory results interpreted by me: 10/24/18 10/24/18 10/24/18 18:38 18:39 18:39 RDW 14.2 H Calcium 10.5 H Urine Protein 100 H Urine Blood LARGE H Urine Nitrite POSITIVE H Ur Leukocyte Esterase LARGE H Discharge - Discharge Clinical Impression: Bacterial vaginosis Urinary tract infection Qualifiers: Urinary tract infection type: site unspecified Hematuria presence: without mesfin turia Qualified Code(s): N39.0 - Urinary tract infection, site not specified Condition: Stable Disposition: HOME, SELF-CARE Additional Instructions: Your urine shows findings consistent with a urinary tract infection. Please take all the antibiotics as directed even if your symptoms have improved. Please follow-up with your primary care physician as needed. Return to emergency room if you develop fever >101F, persistent vomiting, become lethargic, have severe pain in your sides, or any other symptoms that are concerning to you. You are also being treated for bacterial vaginosis, an overgrowth of normal bacteria in the vagina. You are being sent home on an antibiotic called metronidazole. Take exactly as directed. Never drink alcohol while taking this antibiotic. Please return if you develop abdominal pain, fever greater than 101F, some vomiting, or any other symptoms that are concerning to you. Prescriptions: Cephalexin [Cephalexin 500 MG Tablet] 1 tab PO QID #28 tablet Metronidazole [Flagyl 500 mg Tablet] 500 mg PO BID #14 tablet Promethazine HCl [Phenergan 25 mg Tablet] 25 mg PO Q6H #15 tablet Forms: Return to Work
[2018-10-24 23:12] LABS: BACTERIA (WET MOUNT) 3+ BACTERIA SEEN; EPITHELIALS (WET MOUNT) 3+ EPITHELIALS SEEN; T.VAGINALIS (WET MOUNT) NO TRICHOMONAS SEEN; WBCS (WET MOUNT) RARE WBCS SEEN; YEAST (WET MOUNT) NO YEAST SEEN
[2018-10-24] MEDS ORDERED: METRONIDAZOLE 500 MG TABLET PO ONE (23:38)
[2018-10-24] MEDS ORDERED: CEPHALEXIN 500 MG CAPSULE PO ONE (23:38)
[2018-10-24 23:58] VITALS: BP 102/58
[2018-10-25 00:42] LABS: CHLAM PCR NOT DETECTED (NOT DETECT); GON PCR NOT DETECTED (NOT DETECT)
== END 2018-10-25 | disposition home or self-care (01) ==
LOC: ER 17:23
DX: N76.0 Acute vaginitis (principal); B96.89 Other specified bacterial agents as the cause of diseases classified elsewhere; N39.0 Urinary tract infection, site not specified; R50.9 Fever, unspecified; R11.0 Nausea; F17.200 Nicotine dependence, unspecified, uncomplicated; E78.00 Pure hypercholesterolemia, unspecified; Z87.442 Personal history of urinary calculi; Z98.51 Tubal ligation status
CPT/HCPCS: 99283; 96372; 36415; 87086; 87210; 85025; 81025; 80053; 81001; 87491; 87591; J1885; S0119

== ENCOUNTER 2018-10-29 20:44 | Emergency (ER) | payer SELFPAY ==
[2018-10-29] MEDS ORDERED: NORMAL SALINE 1000 ML 1,000 ML IV ONE ×2 (21:33→22:37)
[2018-10-29] MEDS ORDERED: ONDANSETRON HCL INJ/PF 4 MG/2 ML SDV IV ONE (21:33)
[2018-10-29] MEDS ORDERED: MORPHINE SULFATE 10 MG/ML INJ IV ONE (21:56)
[2018-10-29 22:08] LABS: ABSOLUTE BASOPHILS # (AUTO) 0.1 10^3/uL (0.0-0.2); ABSOLUTE EOSINOPHILS # (AUTO) 0.1 10^3/uL (0.0-0.6); ABSOLUTE LYMPHOCYTES (AUTO) 2.5 10^3/uL (0.5-4.7); ABSOLUTE MONOCYTES (AUTO) 1.5 10^3/uL (0.1-1.4); BASOPHILS % (AUTO) 0.4 % (0-2); EOSINOPHILS % (AUTO) 1.1 % (0-6); HEMATOCRIT 40.2 % (36.0-47.0); HEMOGLOBIN 13.7 g/dL (12.0-15.5); LYMPHOCYTES % (AUTO) 18.8 % (13-45); MEAN CORPUSCULAR HEMOGLOBIN 32.4 pg (27.0-33.4); MEAN CORPUSCULAR HGB CONC 34.1 g/dL (32.0-36.0); MEAN CORPUSCULAR VOLUME 95 fl (80-97); MONOCYTES % (AUTO) 11.2 % (3-13); PLATELET COUNT 275 10^3/uL (150-450); RED BLOOD COUNT 4.23 10^6/uL (3.72-5.28); RED CELL DISTRIBUTION WIDTH 14.2 % (11.5-14.0); SEGMENTED NEUTROPHILS % (AUTO) 68.5 % (42-78); TOTAL CELLS COUNTED % (AUTO) 100 %; WHITE BLOOD COUNT 13.1 10^3/uL (4.0-10.5)
--- NOTE | 2018-10-29 22:19 | ER Document Report ---
ED GI/ - General Chief Complaint: Abdominal Pain Stated Complaint: VOMITING Time Seen by Provider: 10/29/18 21:49 Notes: Patient is a 37-year-old female that comes to the emergency department for chief complaint of abdominal pain, vomiting, fever and chills since yesterday. She states this evening her fever was 102 F before she treated it with OTC meds. Pain is in the mid to lower abdomen and occasionally in the upper abdomen. She states she is currently on Keflex and Flagyl, she was seen on 10/24 after having a LEEP procedure and was diagnosed with urinary tract infection and bacterial vaginosis. She also reports a history of multiple kidney stones. She does not currently have a urologist. She denies vaginal bleeding, reports small amount of vaginal discharge. TRAVEL OUTSIDE OF THE [place] IN LAST 30 DAYS: No - Related Data Allergies/Adverse Reactions: No Known Allergies Allergy (Verified 10/29/18 21:57) Past Medical History - General Information source: Patient - Social History Smoking Status: Never Smoker Frequency of alcohol use: Occasional Lives with: Friend Family History: Reviewed & Not Pertinent, Other - Nephrolithiasis - Past Medical History Cardiac Medical History: Reports: Hx Hypercholesterolemia Denies: Hx Coronary Artery Disease Renal/ Medical History: Reports: Hx Kidney Stones. Denies: Hx Peritoneal Dialysis Psychiatric Medical History: Reports: Hx Depression Past Surgical History: Reports: Hx Genitourinary Surgery - lithrotripsy, Hx Tonsillectomy, Hx Tubal Ligation - Immunizations Immunizations up to date: Yes Hx Diphtheria, Pertussis, Tetanus Vaccination: Yes Review of Systems - Review of Systems Constitutional: No symptoms reported EENT: No symptoms reported Cardiovascular: No symptoms reported Respiratory: No symptoms reported Gastrointestinal: See HPI Genitourinary: See HPI Female Genitourinary: See HPI Musculoskeletal: No symptoms reported Skin: No symptoms reported Hematologic/Lymphatic: No symptoms reported Neurological/Psychological: No symptoms reported Physical Exam - Vital signs Vitals: Pulse Resp BP Pulse Ox 81 18 105/74 98 10/29/18 21:15 10/29/18 21:15 10/29/18 21:15 10/29/18 21:15 - Notes Notes: GENERAL: Agitated, holding a bucket, just vomited, appears to be in pain HEAD: Normocephalic, atraumatic. EYES: Pupils equal, round, and reactive to light. Extraocular movements intact. ENT: Oral mucosa moist, tongue midline. Oropharynx unremarkable. Airway patent. Nares patent, no nasal septal hematoma, TM's intact. NECK: Full range of motion. Supple. Trachea midline. LUNGS: Clear to auscultation bilaterally, no wheezes, rales, or rhonchi. No respiratory distress. HEART: Regular rate and rhythm. No murmur ABDOMEN: Generalized tenderness in the mid to lower abdomen, somewhat worse on the left side. No rigidity or guarding. GENITOURINARY: No external concerning findings. There is moderate amount of discharge but no cervical motion tenderness. No concerning findings otherwise. Tiana PCT present during exam. EXTREMITIES: Moves all 4 extremities spontaneously. No edema, normal radial and dorsalis pedis pulses bilaterally. No cyanosis. BACK: no cervical, thoracic, lumbar midline tenderness. No saddle anesthesia, normal distal neurovascular exam. NEUROLOGICAL: Alert and oriented x3. Normal speech. PSYCH: Slightly agitated but otherwise unremarkable SKIN: Warm, dry, normal turgor. No rashes or lesions noted. Course - Re-evaluation Re-evalutation: On initial presentation patient vomited but she is not tachycardic or hypotensive. She reports a fever at home but she already medicated for this. Her abdomen shows pain in the lower abdomen, worse on the left but does not show guarding or rebound tenderness. CBC shows leukocytosis at 1300, elevation of neutrophils, no bandemia. Chemistry shows bicarbonate of 20. Pelvic exam performed, shows some discharge but no cervical motion tenderness. Patient reevaluated, had to be remedicated for pain and vomiting. Urine obtained, concerning for infection, concern for obstructive ureterolithiasis with infection. Will order CAT scan. Patient full agreement t his plan. After third medication dose she is now more comfortable and has stopped vomiting. CT showing 12 mm distal left ureterolithiasis with moderate obstruction. Given Rocephin already, culture was placed, will require transfer because of intractable pain, infected ureterolithiasis. Discussed with patient, she states full agreement. 10/30/18 02:[address] Leander Beltre, urology on-call, he recommends transfer to the emergency department so patient can be evaluated and taken to the OR. Transfer center confirmed that accepting provider will be ED provider Dr. Terry Wheeler. 10/30/18 02:50 Patient has been remedicated again but she is otherwise unchanged pending transport. 10/30/18 03:19 Patient reevaluated at bedside, transport team is here, patient is actually somewhat comfortable at this point. She is not tachycardic or hypotensive. She is alert and oriented. Stable for transport. - Vital Signs Vital signs: Temp Pulse Resp BP Pulse Ox 97.6 F 81 19 123/69 97 10/30/18 03:00 10/29/18 21:15 10/30/18 03:02 10/30/18 03:02 10/30/18 03:02 - Laboratory Result Diagrams: 10/29/18 21:51 10/29/18 21:51 Laboratory results interpreted by me: 10/29/18 10/29/18 10/30/18 21:51 21:51 00:18 WBC 13.1 H RDW 14.2 H Absolute Neutrophils 9.0 H Absolute Monocytes 1.5 H Chloride 108 H Carbon Dioxide 20 L Est GFR (Non-Af Amer) 53 L Calcium 10.3 H Urine Protein 30 H Urine Ketones 20 H Urine Blood MODERATE H Ur Leukocyte Esterase LARGE H Discharge - Discharge Clinical Impression: Ureterolithiasis Vomiting Qualifiers: Vomiting type: unspecified Vomiting Intractability: intractable Nausea presence: with nausea Qualified Code(s): R11.2 - Nausea with vomiting, unspecified Abdominal pain Qualifiers: Abdominal location: unspecified location Qualified Code(s): R10.9 - Unspecified abdominal pain Condition: Fair Disposition: [facility]
[2018-10-29 22:31] LABS: ALANINE AMINOTRANSFERASE 24 U/L (9-52); ALBUMIN 4.4 g/dL (3.5-5.0); ALKALINE PHOSPHATASE 71 U/L (38-126); ANION GAP 11 (5-19); ASPARTATE AMINO TRANSFERASE 19 U/L (14-36); BILIRUBIN,DIRECT 0.3 mg/dL (0.0-0.4); BILIRUBIN,TOTAL 0.4 mg/dL (0.2-1.3); BLOOD UREA NITROGEN 16 mg/dL (7-20); CALCIUM 10.3 mg/dL (8.4-10.2); CARBON DIOXIDE 20 mmol/L (22-30); CHLORIDE 108 mmol/L (98-107); GLUCOSE 89 mg/dL (75-110); LIPASE 76.5 U/L (23-300); POTASSIUM 4.4 mmol/L (3.6-5.0); SODIUM 139.1 mmol/L (137-145)
[2018-10-29] MEDS ORDERED: HYDROMORPHONE HCL INJ/PF 2 MG/ML AMPULE IV ONE (22:38)
[2018-10-29] MEDS ORDERED: PROMETHAZINE HCL INJ 25 MG/1 ML VIAL IM ONE (22:38)
[2018-10-29] MEDS ORDERED: KETOROLAC TROMETHAMINE INJ/PF 30 MG/1 ML SDV IV ONE (23:30)
[2018-10-29 23:57] LABS: BACTERIA (WET MOUNT) 4+ BACTERIA SEEN; EPITHELIALS (WET MOUNT) 3+ EPITHELIALS SEEN; RBCS (WET MOUNT) 2+ RBCS SEEN; T.VAGINALIS (WET MOUNT) NO TRICHOMONAS SEEN; WBCS (WET MOUNT) 4+ WBCS SEEN; YEAST (WET MOUNT) NO YEAST SEEN
[2018-10-30 00:38] LABS: APPEARANCE,URINE CLOUDY; BILIRUBIN,URINE NEGATIVE (NEGATIVE); COLOR,URINE YELLOW; GLUCOSE, URINE NEGATIVE (NEGATIVE); KETONES,URINE 20 mg/dL (NEGATIVE); LEUKOCYTE ESTERASE,URINE LARGE (NEGATIVE); NITRITE,URINE NEGATIVE (NEGATIVE); PROTEIN,URINE 30 mg/dL (NEGATIVE); URINE SPECIFIC GRAVITY 1.021; UROBILINOGEN,URINE NEGATIVE mg/dL (<2.0)
[2018-10-30] MEDS ORDERED: CEFTRIAXONE 1 GM/D5W RTU 1 GM/50 ML RTUPB IV ONE (00:52)
[2018-10-30] MEDS ORDERED: FENTANYL CITRATE INJ/PF 100 MCG/2 ML AMPUL IV ONE ×2 (01:06→02:31)
[2018-10-30 01:19] LABS: CHLAM PCR NOT DETECTED (NOT DETECT); GON PCR NOT DETECTED (NOT DETECT)
--- NOTE | 2018-10-30 01:44 | RADIOLOGY REPORT (SQ) ---
EXAM DESCRIPTION: CT ABDOMEN PELVIS WITHOUT IV CONTRAST COMPLETED DATE/TME: 10/30/2018 00:51 CLINICAL HISTORY: 37 years Female, vomiting, abd pain, UTI, hx stones Comparison:Oct 26 2017 Technique: No contrast. Coronal and sagittal reformat. This exam was performed according to our departmental dose-optimization program, which includes automated exposure control, adjustment of the mA and/or kV according to patient size and/or use of iterative reconstruction technique.[facility]: Dose Right [facility]: CareDose [facility]: Dose Right [facility]: Teradose 4D [facility]: Cervalis LIMITATIONS: None Findings: 1.2 x 0.7 x 0.9 cm, 1136-HU, left distal ureteral stone within 4 cm of the urinary bladder with moderate-severe left hydroureter and moderate left hydronephrosis. Additional bilateral renal and calyceal stones measure up to 0.4 cm each. Left kidney measures 13 cm and right kidney measures 8.4 cm. Minimal left perinephric fat stranding. Small cul-de-sac pelvic fluid. Old granulomatous disease. Atelectasis/scar. Atherosclerotic vascular disease. No pneumoperitoneum. Normal appendix. No gross evidence of gallbladder inflammation or hepatobiliary obstruction. No bowel obstruction. No evidence of abdominal aortic aneurysm. Unenhanced lower thorax, abdominopelvic structures, and musculoskeleton appear otherwise grossly unremarkable. Impression: A 1.2 cm left distal ureteral stone with moderate grade obstruction.
[2018-10-30 03:05] VITALS: BP 123/69
== END 2018-10-30 03:24 | disposition short-term general hospital (02) ==
LOC: ER 20:44
DX: N20.1 Calculus of ureter (principal); R11.2 Nausea with vomiting, unspecified; R10.9 Unspecified abdominal pain; R50.9 Fever, unspecified; E78.00 Pure hypercholesterolemia, unspecified; Z87.442 Personal history of urinary calculi; Z98.51 Tubal ligation status
CPT/HCPCS: 96376; 99285; 96372; 96361; 96375; 96365; 36415; 87086; 87210; 83690; 84703; 85025; 80053; 81001; 87491; 87591; 74176; J3010; J1885; J2270; J1170; J2550; J2405; J7030; J0696

== ENCOUNTER 2018-11-13 13:23 | Emergency (ER) | payer SELFPAY ==
[2018-11-13] MEDS ORDERED: OXYCODONE-ACETAMINOPHEN 5-325 MG TABLET PO ONE (13:57)
--- NOTE | 2018-11-13 13:58 | ER Document Report ---
ED Medical Screen (RME) - General Chief Complaint: Flank Pain Stated Complaint: FLANK PAIN Time Seen by Provider: 11/13/18 13:52 Mode of Arrival: Medic Information source: Patient Notes: Patient presents emergency department with complaints of severe left-sided flank pain. History of 12 mm kidney stone. [facility] she was here they were unable to do the surgery because of so much infection. Patient reports she does have a follow-up appointment this Monday but is hurting severely. Complains of fever on and off with nausea vomiting. Was given ketamine by medic which which patient reports helped for a little bit but the pain has returned. Patient is in severe pain. I have greeted and performed a rapid initial assessment of this patient. A comprehensive ED assessment and evaluation of the patient, analysis of test results and completion of the medical decision making process will be conducted by additional ED providers. Dictation of this chart was performed using voice recognition software; therefore, there may be some unintended grammatical errors. TRAVEL OUTSIDE OF THE [place] IN LAST 30 DAYS: No - Related Data Allergies/Adverse Reactions: No Known Allergies Allergy (Verified 10/29/18 21:57) Past Medical History - Social History Frequency of alcohol use: Rare Drug Abuse: None - Past Medical History Cardiac Medical History: Reports: Hx Hypercholesterolemia Denies: Hx Coronary Artery Disease Renal/ Medical History: Reports: Hx Kidney Stones. Denies: Hx Peritoneal Dialysis Psychiatric Medical History: Reports: Hx Depression Past Surgical History: Reports: Hx Genitourinary Surgery - lithrotripsy, Hx Tonsillectomy, Hx Tubal Ligation - Immunizations Immunizations up to date: Yes Hx Diphtheria, Pertussis, Tetanus Vaccination: Yes Physical Exam - Vital signs Vitals: Temp Pulse Resp Pulse Ox 97.8 F 102 H 16 98 11/13/18 13:31 11/13/18 13:31 11/13/18 13:31 11/13/18 13:31 Course - Vital Signs Vital signs: Temp Pulse Resp BP Pulse Ox 97.8 F 102 H 16 98 11/13/18 13:31 11/13/18 13:31 11/13/18 13:31 11/13/18 13:31
[2018-11-13 14:07] LABS: ABSOLUTE BASOPHILS # (AUTO) 0.1 10^3/uL (0.0-0.2); ABSOLUTE EOSINOPHILS # (AUTO) 0.1 10^3/uL (0.0-0.6); ABSOLUTE LYMPHOCYTES (AUTO) 2.4 10^3/uL (0.5-4.7); ABSOLUTE MONOCYTES (AUTO) 0.6 10^3/uL (0.1-1.4); ABSOLUTE NEUT (AUTO) 5.6 10^3/uL (1.7-8.2); BASOPHILS % (AUTO) 0.8 % (0-2); EOSINOPHILS % (AUTO) 1.3 % (0-6); HEMATOCRIT 40.5 % (36.0-47.0); HEMOGLOBIN 13.6 g/dL (12.0-15.5); LYMPHOCYTES % (AUTO) 27.5 % (13-45); MEAN CORPUSCULAR HEMOGLOBIN 31.7 pg (27.0-33.4); MEAN CORPUSCULAR HGB CONC 33.5 g/dL (32.0-36.0); MEAN CORPUSCULAR VOLUME 95 fl (80-97); MONOCYTES % (AUTO) 7.2 % (3-13); PLATELET COUNT 340 10^3/uL (150-450); RED BLOOD COUNT 4.28 10^6/uL (3.72-5.28); RED CELL DISTRIBUTION WIDTH 14.2 % (11.5-14.0); SEGMENTED NEUTROPHILS % (AUTO) 63.2 % (42-78); TOTAL CELLS COUNTED % (AUTO) 100 %; WHITE BLOOD COUNT 8.8 10^3/uL (4.0-10.5)
[2018-11-13 14:20] LABS: ALANINE AMINOTRANSFERASE 17 U/L (9-52); ALBUMIN 4.6 g/dL (3.5-5.0); ALKALINE PHOSPHATASE 68 U/L (38-126); ANION GAP 13 (5-19); ASPARTATE AMINO TRANSFERASE 16 U/L (14-36); BILIRUBIN,DIRECT 0.2 mg/dL (0.0-0.4); BILIRUBIN,TOTAL 0.3 mg/dL (0.2-1.3); BLOOD UREA NITROGEN 19 mg/dL (7-20); CALCIUM 10.1 mg/dL (8.4-10.2); CARBON DIOXIDE 23 mmol/L (22-30); CHLORIDE 105 mmol/L (98-107); GLUCOSE 98 mg/dL (75-110); SODIUM 141.3 mmol/L (137-145); TOTAL PROTEIN 7.6 g/dL (6.3-8.2)
[2018-11-13] MEDS ORDERED: MORPHINE SULFATE 10 MG/ML INJ IV ONE ×3 (15:15→18:45)
[2018-11-13] MEDS ORDERED: ONDANSETRON HCL INJ/PF 4 MG/2 ML SDV IV ONE ×2 (15:15→17:32)
[2018-11-13] MEDS ORDERED: NORMAL SALINE 1000 ML 1,000 ML IV ONE ×2 (15:15→17:33)
[2018-11-13 15:24] LABS: APPEARANCE,URINE SLIGHTLY-CLOUDY; BILIRUBIN,URINE NEGATIVE (NEGATIVE); CALCIUM OXALATE CRYSTALS,URINE FEW /HPF; COLOR,URINE YELLOW; GLUCOSE, URINE NEGATIVE (NEGATIVE); KETONES,URINE NEGATIVE (NEGATIVE); LEUKOCYTE ESTERASE,URINE LARGE (NEGATIVE); NITRITE,URINE NEGATIVE (NEGATIVE); PROTEIN,URINE 100 mg/dL (NEGATIVE); URINE SPECIFIC GRAVITY 1.008; UROBILINOGEN,URINE NEGATIVE mg/dL (<2.0)
--- NOTE | 2018-11-13 16:10 | ER Document Report ---
Entered by AIDEN MCCORD SCRIBE 11/13/18 1531 Acting as scribe for:CHALO MORELOS MD ED General - General Chief Complaint: Flank Pain Stated Complaint: FLANK PAIN Time Seen by Provider: 11/13/18 13:52 Mode of Arrival: Medic Information source: Patient Notes: Patient is a 37 year old male presenting to the emergency department complaining of left flank pain, intermittent fevers, and vomiting onset around 0100 this am. Patient state she woke up with left flank pain that radiates into her left abdomen. She states she has had intermittent fevers since being in [facility]. She also complains of nausea and vomiting since 0100 this am. Patient presented to this ED on 10/29/2018 and was diagnosed with an obstructing left distal 12 mm ureteral stone with infection. The urine culture from that visit was no growth. Patient was transferred to [facility] on 10/30/2018 where she has cystoscopy and a stent was placed, and the patient was dsicharged home the next day. Patient states the providers at [facility] only placed a stent due to get rid of the infection with plans to go back at a later date and remove the stone. She was recently on Keflex and Flagyl due to a recent LEEP, so the providers at [facility] wrote her another prescription for the same. TRAVEL OUTSIDE OF THE [place] IN LAST 30 DAYS: No - Related Data Allergies/Adverse Reactions: No Known Allergies Allergy (Verified 10/29/18 21:57) Past Medical History - General Information source: Patient - Social History Smoking Status: Current Every Day Smoker Frequency of alcohol use: Rare Drug Abuse: None Family History: Reviewed & Not Pertinent, Other - Nephrolithiasis Patient has suicidal ideation: No Patient has homicidal ideation: No - Past Medical History Cardiac Medical History: Reports: Hx Hypercholesterolemia Renal/ Medical History: Reports: Hx Kidney Stones Psychiatric Medical History: Reports: Hx Depression Past Surgical History: Reports: Hx Genitourinary Surgery - lithrotripsy, Hx Tonsillectomy, Hx Tubal Ligation - Immunizations Immunizations up to date: Yes Hx Diphtheria, Pertussis, Tetanus Vaccination: Yes Review of Systems - Review of Systems Constitutional: No symptoms reported EENT: No symptoms reported Cardiovascular: No symptoms reported Respiratory: No symptoms reported Gastrointestinal: See HPI Genitourinary: See HPI, Flank pain Female Genitourinary: No symptoms reported Musculoskeletal: No symptoms reported Skin: No symptoms reported Hematologic/Lymphatic: No symptoms reported Neurological/Psychological: No symptoms reported -: Yes All other systems reviewed and negative Physical Exam - Vital signs Vitals: Temp Pulse Resp Pulse Ox 97.8 F 102 H 16 98 11/13/18 13:31 11/13/18 13:31 11/13/18 13:31 11/13/18 13:31 - Notes Notes: GENERAL: Alert, appears uncomfortable. Interacts well. No acute distress. HEAD: Normocephalic, atraumatic. EYES: Pupils equal, round, and reactive to light. Extraocular movements intact. ENT: Oral mucosa moist, tongue midline. NECK: Full range of motion. Supple. Trachea midline. LUNGS: Clear to auscultation bilaterally, no wheezes, rales, or rhonchi. No respiratory distress. HEART: Regular rate and rhythm. No murmurs, gallops, or rubs. ABDOMEN: Soft, non-tender. Non-distended. Decreased bowel sounds. No guarding, rigidity, or rebound. EXTREMITIES: Moves all 4 extremities spontaneously. NEUROLOGICAL: Alert and oriented x3. Normal speech. PSYCH: Normal affect, normal mood. SKIN: Warm, dry, normal turgor. No rashes or lesions noted. BACK: Left CVA tenderness percussion. Course - Re-evaluation Re-evalutation: 11/13/18 20:45 The patient is feeling some better. She has been off antibiotics now for several days, so we will start her back on an antibiotic. She states she needs Diflucan to prevent yeast infections when she gets antibiotics. Her systolic pressure this time is 97, she states her normal blood pressure systolic runs in the 90s. Reviewing previous visits shows blood pressures that were much higher, but that may be due to pain at the time. - Vital Signs Vital signs: Temp Pulse Resp BP Pulse Ox 97.7 F 52 L 16 97/64 L 99 11/13/18 17:24 11/13/18 17:24 11/13/18 17:24 11/13/18 20:44 11/13/18 17:24 - Laboratory Result Diagrams: 11/13/18 12:18 11/13/18 12:18 Laboratory results interpreted by me: 11/13/18 11/13/18 12:18 14:58 RDW 14.2 H Urine Protein 100 H Urine Blood LARGE H Ur Leukocyte Esterase LARGE H - Diagnostic Test Radiology reviewed: Image reviewed, Reports reviewed - CT scan shows mild left hydronephrosis with ureteral stent in place. Compared to the previous scan it is considerably improved. Discharge - Discharge Clinical Impression: Flank pain, Hydronephrosis concurrent with and due to calculi of kidney and ureter Condition: Stable Disposition: HOME, SELF-CARE Additional Instructions: Take the medications as prescribed. Drink plenty of fluids. Call your urologist tomorrow to tell him about your visit to the emergency room. RETURN TO THE EMERGENCY ROOM IF ANY NEW OR WORSENING SYMPTOMS. Prescriptions: Ciprofloxacin HCl [Cipro 500 mg Tablet] 500 mg PO BID #14 tablet Fluconazole [Diflucan 100 mg Tablet] 100 mg PO DAILY PRN #2 tablet PRN Reason: Oxycodone HCl/Acetaminophen [Percocet 5-325 mg Tablet] 1 tab PO ASDIR PRN #15 tablet PRN Reason: Scribe Attestation: 11/13/18 20:46 I personally performed the services described in the documentation, reviewed and edited the documentation which was dictated to the scribe in my presence, and it accurately records my words and actions. I personally performed the services described in the documentation, reviewed and edited the documentation which was dictated to the scribe in my presence, and it accurately records my words and actions.
--- NOTE | 2018-11-13 19:21 | RADIOLOGY REPORT (SQ) ---
EXAM DESCRIPTION: CT ABD/PELVIS NO ORAL OR IV COMPLETED DATE/TIME: 11/13/2018 7:08 pm REASON FOR STUDY: Left flank pain,ureteral stent 10/30/18 COMPARISON: 10/30/2018 TECHNIQUE: CT scan of the abdomen and pelvis performed without intravenous or oral contrast. Images reviewed with lung, soft tissue, and bone windows. Reconstructed coronal and sagittal MPR images revi ewed. All images stored on PACS. All CT scanners at this facility use dose modulation, iterative reconstruction, and/or weight based d osing when appropriate to reduce radiation dose to as low as reasonably achievable (ALARA). [facility]: Dose Right [facility]: CareDose [facility]: Dose Right [facility]: Teradose 4D [facility]: Smart HashParade RADIATION DOSE: CT Rad equipment meets quality standard of care and radiation dose reduction techniq ues were employed. CTDIvol: 6.0 mGy. DLP: 327 mGy-cm.mGy. LIMITATIONS: None. FINDINGS: LOWER CHEST: Mild dependent atelectasis. NON-CONTRASTED LIVER, SPLEEN, ADRENALS: Evaluation limited by lack of IV contrast. No identified sign ificant masses. PANCREAS: No masses. No peripancreatic inflammatory changes. GALLBLADDER: No identified stones by CT criteria. No inflammatory changes to suggest cholecystitis. RIGHT KIDNEY AND URETER: No suspicious masses. Assessment limited by lack of IV contrast. There are couple nonobstructing intrarenal calculi. No hydronephrosis or hydroureter. LEFT KIDNEY AND URETER: No suspicious masses. Assessment limited by lack of IV contrast. There are couple nonobstructing intrarenal calculi. Mild hydronephrosis. A stent extends from the left renal pelvis to the bladder. AORTA AND RETROPERITONEUM: No aneurysm. No retroperitoneal masses or adenopathy. BOWEL AND PERITONEAL CAVITY: No obvious masses or inflammatory changes. No free fluid. APPENDIX: Normal. PELVIS, BLADDER, AND ABDOMINAL WALL:No abnormal masses. No free fluid. Bladder normal. BONES: No significant findings. OTHER: No other significant finding. IMPRESSION: Mild left hydronephrosis. Ureteral stent remains in place. Small nonobstructing intrar enal calculi bilaterally. COMMENT: Quality ID # [id number]: Final reports with documentation of one or more dose reduction techniques (e.g., Automated exposure control, adjustment of the mA and/or kV according to patient size, use of iterative reconstruction technique) TECHNICAL DOCUMENTATION: JOB ID: [id number] [employer]- All Rights Reserved Reading location - IP/workstation name: [email or web address]
[2018-11-13] MEDS ORDERED: KETOROLAC TROMETHAMINE INJ/PF 30 MG/1 ML SDV IV ONE (19:47)
[2018-11-13] MEDS ORDERED: FLUCONAZOLE 100 MG TABLET PO ONE (20:51)
[2018-11-13] MEDS ORDERED: CIPROFLOXACIN HCL 500 MG TABLET PO ONE (20:51)
[2018-11-13] MEDS ORDERED: HYDROCODONE/ACETAMINOPHEN 5-325 MG (6 TAB/ER DISP) PO PRN (21:12)
[2018-11-13] MEDS ORDERED: ONDANSETRON ODT 4 MG TAB (6 TAB/ER DISP) PO PRN (21:14)
[2018-11-13 21:35] VITALS: BP 98/62
== END 2018-11-13 21:35 | disposition home or self-care (01) ==
LOC: ER 13:23
DX: N13.30 Unspecified hydronephrosis (principal); N20.2 Calculus of kidney with calculus of ureter; R10.9 Unspecified abdominal pain; R50.9 Fever, unspecified; R11.10 Vomiting, unspecified; F17.200 Nicotine dependence, unspecified, uncomplicated; Z87.442 Personal history of urinary calculi; E78.00 Pure hypercholesterolemia, unspecified; Z98.51 Tubal ligation status
CPT/HCPCS: 96376; 99284; 96361; 96374; 96375; 36415; 87086; 85025; 81025; 80053; 81001; 74176; J1885; J2270; J2405; J7030

== ENCOUNTER 2018-12-12 10:44 | Emergency (ER) | payer MEDICAID ==
[2018-12-12] MEDS ORDERED: MORPHINE SULFATE 10 MG/ML INJ IV ONE (11:16)
[2018-12-12] MEDS ORDERED: ONDANSETRON HCL INJ/PF 4 MG/2 ML SDV IV ONE (11:17)
--- NOTE | 2018-12-12 11:18 | ER Document Report ---
ED Medical Screen (RME) - General Chief Complaint: Flank Pain Stated Complaint: FLANK PAIN Time Seen by Provider: 12/12/18 11:12 Mode of Arrival: Ambulatory Information source: Patient Notes: Patient has a history of left-sided kidney stone with a stent placed last month. Patient complains of persistent left flank pain that radiates to left lower quadrant. Patient states she had a fever of 102 yesterday. Patient reports hematuria, blood in her stool, and vaginal bleeding. I have greeted and performed a rapid initial assessment of this patient. A comprehensive ED assessment and evaluation of the patient, analysis of test results and completion of the medical decision making process will be conducted by additional ED providers. TRAVEL OUTSIDE OF THE [place] IN LAST 30 DAYS: No - Related Data Allergies/Adverse Reactions: No Known Allergies Allergy (Verified 10/29/18 21:57) Past Medical History - Past Medical History Cardiac Medical History: Reports: Hx Hypercholesterolemia Denies: Hx Coronary Artery Disease Renal/ Medical History: Reports: Hx Kidney Stones. Denies: Hx Peritoneal Dialysis Psychiatric Medical History: Reports: Hx Depression Past Surgical History: Reports: Hx Genitourinary Surgery - lithrotripsy, Hx Tonsillectomy, Hx Tubal Ligation - Immunizations Immunizations up to date: Yes Hx Diphtheria, Pertussis, Tetanus Vaccination: Yes Physical Exam - Vital signs Vitals: Temp Pulse Resp BP Pulse Ox 98.2 F 82 16 119/69 99 12/12/18 10:57 12/12/18 10:57 12/12/18 10:57 12/12/18 10:57 12/12/18 10:57 - Back Back: CVA tenderness - left Course - Vital Signs Vital signs: Temp Pulse Resp BP Pulse Ox 98.2 F 82 16 119/69 99 12/12/18 10:57 12/12/18 10:57 12/12/18 10:57 12/12/18 10:57 12/12/18 10:57
[2018-12-12 11:46] LABS: ABSOLUTE BASOPHILS # (AUTO) 0.1 10^3/uL (0.0-0.2); ABSOLUTE EOSINOPHILS # (AUTO) 0.2 10^3/uL (0.0-0.6); ABSOLUTE LYMPHOCYTES (AUTO) 1.9 10^3/uL (0.5-4.7); ABSOLUTE MONOCYTES (AUTO) 0.6 10^3/uL (0.1-1.4); ABSOLUTE NEUT (AUTO) 4.1 10^3/uL (1.7-8.2); BASOPHILS % (AUTO) 0.8 % (0-2); EOSINOPHILS % (AUTO) 2.9 % (0-6); HEMATOCRIT 39.9 % (36.0-47.0); HEMOGLOBIN 13.7 g/dL (12.0-15.5); LYMPHOCYTES % (AUTO) 27.3 % (13-45); MEAN CORPUSCULAR HEMOGLOBIN 31.9 pg (27.0-33.4); MEAN CORPUSCULAR HGB CONC 34.2 g/dL (32.0-36.0); MEAN CORPUSCULAR VOLUME 93 fl (80-97); MONOCYTES % (AUTO) 8.3 % (3-13); PLATELET COUNT 281 10^3/uL (150-450); RED BLOOD COUNT 4.28 10^6/uL (3.72-5.28); RED CELL DISTRIBUTION WIDTH 14.4 % (11.5-14.0); SEGMENTED NEUTROPHILS % (AUTO) 60.7 % (42-78); TOTAL CELLS COUNTED % (AUTO) 100 %; WHITE BLOOD COUNT 6.8 10^3/uL (4.0-10.5)
[2018-12-12 11:53] LABS: PROTHROMBIN TIME 11.5 SEC (11.4-15.4)
[2018-12-12 11:54] LABS: PARTIAL THROMBOPLASTIN TIME 26.1 SEC (23.5-35.8)
[2018-12-12 12:12] LABS: ALANINE AMINOTRANSFERASE 15 U/L (9-52); ALBUMIN 4.4 g/dL (3.5-5.0); ALKALINE PHOSPHATASE 70 U/L (38-126); ANION GAP 10 (5-19); ASPARTATE AMINO TRANSFERASE 17 U/L (14-36); BILIRUBIN,DIRECT 0.3 mg/dL (0.0-0.4); BILIRUBIN,TOTAL 0.4 mg/dL (0.2-1.3); BLOOD UREA NITROGEN 14 mg/dL (7-20); CARBON DIOXIDE 24 mmol/L (22-30); CHLORIDE 108 mmol/L (98-107); GLUCOSE 96 mg/dL (75-110); POTASSIUM 4.9 mmol/L (3.6-5.0); SODIUM 142.3 mmol/L (137-145)
[2018-12-12 12:29] LABS: APPEARANCE,URINE CLOUDY; BILIRUBIN,URINE NEGATIVE (NEGATIVE); CALCIUM OXALATE CRYSTALS,URINE FEW /HPF; COLOR,URINE YELLOW; GLUCOSE, URINE NEGATIVE (NEGATIVE); KETONES,URINE NEGATIVE (NEGATIVE); LEUKOCYTE ESTERASE,URINE LARGE (NEGATIVE); NITRITE,URINE NEGATIVE (NEGATIVE); PROTEIN,URINE >=500 mg/dL (NEGATIVE); URINE SPECIFIC GRAVITY 1.017; UROBILINOGEN,URINE NEGATIVE mg/dL (<2.0)
[2018-12-12] MEDS ORDERED: HYDROMORPHONE HCL INJ/PF 2 MG/ML AMPULE IV ONE (12:45)
[2018-12-12] MEDS ORDERED: CEFTRIAXONE 1 GM/D5W RTU 1 GM/50 ML RTUPB IV ONE (12:49)
[2018-12-12] MEDS ORDERED: NORMAL SALINE 1000 ML 1,000 ML IV ONE (12:49)
--- NOTE | 2018-12-12 12:50 | ER Document Report ---
ED GI/ - General Chief Complaint: Flank Pain Stated Complaint: FLANK PAIN Time Seen by Provider: 12/12/18 11:12 Mode of Arrival: Ambulatory TRAVEL OUTSIDE OF THE [place] IN LAST 30 DAYS: No - HPI Notes: 12/12/18 12:46 Patient is a 38-year-old female presents to the emergency department with a chief complaint of left flank pain. She states that on November 13 she was diagnosed with a 15 mm kidney stone and was sent to [facility]. Patient states that a stent was placed but they were unable to perform lithotripsy due to the infected stone. Patient was to follow-up with the urologist at [facility] but was unable to get a hold of them to make an appointment. Patient states that yesterday the left flank pain continued to get worse and pain radiates into the left lower quadrant. Patient states that she has had pain and frequency with urination. Patient reports she has vomited over 10 times in the past 12 hours. Patient also complains of diarrhea every few hours that is liquid and has some bright red blood in it. Patient also complains of pelvic discomfort with vaginal discharge that is mucus-like with scant blood. Patient states she is not concerned for sexually transmitted diseases. - Related Data Allergies/Adverse Reactions: No Known Allergies Allergy (Verified 12/12/18 11:21) Past Medical History - General Information source: Patient - Social History Smoking Status: Current Every Day Smoker Family History: Reviewed & Not Pertinent, Other - Nephrolithiasis Patient has suicidal ideation: No Patient has homicidal ideation: No - Past Medical History Cardiac Medical History: Reports: Hx Hypercholesterolemia Denies: Hx Coronary Artery Disease Pulmonary Medical History: Reports: None EENT Medical History: Reports: None Neurological Medical History: Reports: None Endocrine Medical History: Reports: None Renal/ Medical History: Reports: Hx Kidney Stones. Denies: Hx Peritoneal Dialysis Malignancy Medical History: Reports: None GI Medical History: Reports: None Musculoskeletal Medical History: Reports None Skin Medical History: Reports None Psychiatric Medical History: Reports: Hx Depression Traumatic Medical History: Reports: None Infectious Medical History: Reports: None Past Surgical History: Reports: Hx Genitourinary Surgery - lithrotripsy, Hx Tonsillectomy, Hx Tubal Ligation - Immunizations Immunizations up to date: Yes Hx Diphtheria, Pertussis, Tetanus Vaccination: Yes Review of Systems - Review of Systems Constitutional: See HPI EENT: No symptoms reported Cardiovascular: No symptoms reported Respiratory: No symptoms reported Gastrointestinal: See HPI Genitourinary: See HPI Female Genitourinary: See HPI Musculoskeletal: No symptoms reported Skin: No symptoms reported Hematologic/Lymphatic: No symptoms reported Neurological/Psychological: No symptoms reported Physical Exam - Vital signs Vitals: Temp Pulse Resp BP Pulse Ox 98.2 F 82 16 119/69 99 12/12/18 10:57 12/12/18 10:57 12/12/18 10:57 12/12/18 10:57 12/12/18 10:57 - Notes Notes: GENERAL: Ill-appearing, well-nourished and in mild distress. HEAD: Atraumatic, normocephalic. EYES: Pupils equal round and reactive to light, extraocular movements intact, sclera anicteric, conjunctiva are normal. ENT: Moist mucous membranes. NECK: Normal range of motion, supple without lymphadenopathy or JVD. LUNGS: Breath sounds clear to auscultation bilaterally and equal. No wheezes rales or rhonchi. HEART: Regular rate and rhythm without murmurs, rubs or gallops. ABDOMEN: Soft, suprapubic and left lower quadrant tenderness, normoactive bowel sounds. No guarding, no rebound. No masses appreciated. BACK: No cervical, thoracic, lumbar midline tenderness. No saddle anesthesia, normal distal neurovascular exam. GENITOURINARY: Deferred. EXTREMITIES: Normal range of motion, no pitting or edema. No clubbing or cyanosis. NEUROLOGICAL: Cranial nerves II through XII grossly intact. Normal speech, normal gait. PSYCH: Normal mood, normal affect. SKIN: Warm, Dry, normal turgor, no rashes or lesions noted. Course - Re-evaluation Re-evalutation: 12/12/18 14:56 Patient reports feeling better with her left flank discomfort after receiving Toradol. Pelvic examination was performed and specimens obtained. Patient tolerated well, minimal cervical motion tenderness. Patient states she is concerned for bacterial vaginosis as she has had this twice since October. Rectal exam was performed, small external hemorrhoid noted, non thrombosed, Hemoccult negative. 12/12/18 16:01 Paged Urology at [facility] for consult. 12/12/18 16:[address] Hung Ren at [facility] to discuss patient's case. He recommends to obtain a urine culture, Rocephin 1 gram while in the ER and to send patient home on Bactrim or Keflex for seven days, and that someone from his office will call her tomorrow to schedule a follow up appointment. He also recommended strict return precautions. 12/12/18 16:30 Spoke with patient regarding discharge instructions and pain medication regimen. Will place patient on Keflex and call [facility] tomorrow. - Vital Signs Vital signs: Temp Pulse Resp BP Pulse Ox 98.0 F 62 16 110/72 97 12/12/18 17:00 12/12/18 17:00 12/12/18 17:00 12/12/18 17:00 12/12/18 17:00 - Laboratory Result Diagrams: 12/12/18 11:30 12/12/18 11:30 Laboratory results interpreted by me: 12/12/18 12/12/18 12/12/18 11:30 11:30 11:30 RDW 14.4 H Chloride 108 H Urine Protein >=500 H Urine Blood LARGE H Ur Leukocyte Esterase LARGE H - Diagnostic Test Radiology reviewed: Reports reviewed Procedures - Pelvic Exam Pelvic exam Time completed: 14:45 Cultures obtained: Yes Wet prep obtained: Yes Herpes culture obtained: No Foreign body removed: No Bimanual exam performed: Yes Witnessed by: YOUNGER RN. Discharge - Discharge Clinical Impression: Bacterial vaginosis, Pelvic pain, Bacteriuria with pyuria Urinary tract infection Qualifiers: Urinary tract infection type: acute cystitis Hematuria presence: with hematuria Qualified Code(s): N30.01 - Acute cystitis with hematuria Condition: Stable Disposition: HOME, SELF-CARE Additional Instructions: Today you were seen in the emergency department for left flank pain. Your renal ultrasound did show a left hydronephrosis with stent intact. Your urine does show a UTI which we will place you on Keflex for 7 days. I spoke with Dr. Hung Ren at [facility]. He states someone from his office will call you tomorrow to schedule a follow-up appointment. He did state the office changed her name and is now called [facility]. It is imperative that you schedule a follow-up appointment for them as they are the ones who placed the stent and he will need to remove it. Please return to the emergency department for fever, chills, worsening pain, inability to urinate, inability to tolerate p.o., or any worsening signs or symptoms. Take Ibuprofen as needed for pain, Percocet for severe pain, and flagyl for your bacterial vaginosis. Do not drink alcohol while on Flagyl. Urinary Tract Infection Your evaluation indicates that you have a urinary tract infection. This is due to germs growing in the bladder. This is a common problem. This infection usually responds quickly to antibiotics. Your antibiotic should be taken exactly as prescribed. Drink plenty of fluids -- three to four quarts a day. Occasionally, a bladder anesthetic will be prescribed to help stop the feeling of urgency until the antibiotic has a chance to clear the infection. This may cause your urine to be dark orange. Certain urine infections require a culture. If the doctor obtained a culture, the results will be back in two days. You should call to see if a change in treatment is needed. A repeat urinalysis after you finish treatment is often recommended. The physician will let you know if further testing is required. Call the doctor if you develop fever, chills, flank pain, inability to urinate, or blood in the urine. Prescriptions: Cephalexin Monohydrate [Keflex 500 mg Capsule] 500 mg PO BID 7 Days #14 capsule Metronidazole [Flagyl 500 mg Tablet] 500 mg PO BID 7 Days #14 tablet Ondansetron [Zofran Odt 4 mg Tablet] 1 tab PO Q4H PRN #15 tab.rapdis PRN Reason: For Nausea/Vomiting Oxycodone HCl/Acetaminophen [Percocet 5-325 mg Tablet] 1 tab PO Q6 #15 tablet Phenazopyridine HCl [Pyridium 100 Mg Tablet] 100 mg PO TID 2 Days #6 tablet
--- NOTE | 2018-12-12 12:52 | RADIOLOGY REPORT (SQ) ---
EXAM DESCRIPTION: U/S RETROPERITON (RENAL/AORTA) COMPLETED DATE/TIME: 12/12/2018 12:38 pm REASON FOR STUDY: L flank pain, hx stone/stent COMPARISON: 10/01/2018 TECHNIQUE: Dynamic and static grayscale images acquired of the kidneys and bladder and recorded on P ACS. Additional selected color Doppler and spectral images recorded. LIMITATIONS: None. FINDINGS: RIGHT KIDNEY: Normal size, 8.9 cm. Normal echogenicity. No solid or suspicious masses. No hydronephrosis. No calcifications. LEFT KIDNEY: Normal size, 13 cm. Left hydronephrosis. A stent extends from the left renal pelvis t o the bladder. BLADDER: No masses. OTHER FINDINGS: No other significant finding. IMPRESSION: Left hydronephrosis. There is a stent that extends from the left renal pelvis to the bl adder. TECHNICAL DOCUMENTATION: JOB ID: [id number] [employer]- All Rights Reserved Reading location - IP/workstation name: [email or web address]
[2018-12-12] MEDS ORDERED: KETOROLAC TROMETHAMINE INJ/PF 30 MG/1 ML SDV IV ONE (14:14)
[2018-12-12 15:24] LABS: BACTERIA (WET MOUNT) 4+ BACTERIA SEEN; RBCS (WET MOUNT) FEW RBCS SEEN; T.VAGINALIS (WET MOUNT) NO TRICHOMONAS SEEN; WBCS (WET MOUNT) 4+ WBCS SEEN; YEAST (WET MOUNT) NO YEAST SEEN
[2018-12-12 16:54] LABS: CHLAM PCR NOT DETECTED (NOT DETECT); GON PCR NOT DETECTED (NOT DETECT)
[2018-12-12] MEDS ORDERED: OXYCODONE-ACETAMINOPHEN 5-325 MG TABLET PO ONE (17:10)
[2018-12-12] MEDS ORDERED: CEPHALEXIN 500 MG CAPSULE PO ONE (17:10)
[2018-12-12 17:31] VITALS: BP 110/72
== END 2018-12-12 17:32 | disposition home or self-care (01) ==
LOC: ER 10:44
DX: N76.0 Acute vaginitis (principal); B96.89 Other specified bacterial agents as the cause of diseases classified elsewhere; N30.01 Acute cystitis with hematuria; R11.10 Vomiting, unspecified; R19.7 Diarrhea, unspecified; K64.4 Residual hemorrhoidal skin tags; F17.200 Nicotine dependence, unspecified, uncomplicated; Z96.0 Presence of urogenital implants; Z87.442 Personal history of urinary calculi
CPT/HCPCS: 99284; 96361; 96375; 96365; 36415; 87086; 87210; 84703; 85025; 85610; 85730; 80053; 81001; 87491; 87591; 76770; J1885; J2270; J1170; J2405; J7030; J0696

== ENCOUNTER → 2019-04-16 | Outpatient (CLI) | payer MEDICAID ==
--- NOTE | 2019-04-16 14:33 | WOMENS IMAGING REPORT ---
EXAM DESCRIPTION: 3D SCREENING MAMMO BILAT COMPLETED DATE/TIME: 04/16/2019 10:21 am REASON FOR STUDY: Z12.31 SCREENING MAMMO Z12.31 ENCNTR SCREEN MAMMOGRAM FOR MALIGNANT NEOPLASM OF B RE COMPARISON: Digital diagnostic bilateral mammogram dated 02/28/2012 and 04/22/2009. EXAM PARAMETERS: Standard craniocaudal and mediolateral oblique views of each breast recorded using digital acquisition and breast tomosynthesis. Read with the assistance of CAD. .FORMERLY [facility] - [employer]per Version 9.2 LIMITATIONS: None. FINDINGS: Findings present which are benign by mammographic criteria. No suspicious masses, calcific ations or architectural distortion. Pertinent benign findings: Stable focal asymmetry upper-outer quadrant left breast. Fluctuating nod ules in the breast. Benign mammographic findings may include one or more of the following: Smooth masses, popcorn/rim/coa rse calcifications, asymmetries, post-procedure changes, and lesions with long-standing stability. IMPRESSION: BENIGN MAMMOGRAPHIC FINDINGS. BIRADS 2 BREAST DENSITY: c. The breasts are heterogeneously dense, which may obscure small masses. BIRAD: ASSESSMENT: 2 BENIGN FINDING(S) RECOMMENDATION: 1. ROUTINE SCREENING COMMENT: The patient has been notified of the results by letter per SA requirements. Additional no tification policies are in place for contacting patient with suspicious or incomplete findings. Quality ID #225: [employer] recommends an annual screening mammogram for women aged 40 years or over. This facility utilizes a reminder system to ensure that all patients receive reminder letters, and/or direct phone calls for appointments. This includes reminders for routine scr eening mammograms, diagnostic mammograms, or other Breast Imaging Interventions when appropriate. Th is patient will be placed in the appropriate reminder system. TECHNICAL DOCUMENTATION: FINDING NUMBER: (1) ASSESSMENT: (1) JOB ID: [id number] [employer]- All Rights Reserved Reading location - IP/workstation name: [email or web address]
== END ==
LOC: WI 09:40
PROVIDERS: ATTEND Obstetrics & Gynecology Gynecologic Oncology
DX: Z12.31 Encounter for screening mammogram for malignant neoplasm of breast (principal)
CPT/HCPCS: 77063; 77067

== ENCOUNTER 2019-06-04 19:35 | Emergency (ER) | payer MEDICAID ==
--- NOTE | 2019-06-04 19:50 | ER Document Report ---
ED Medical Screen (RME) - General Chief Complaint: Vomiting Stated Complaint: VOMITING Time Seen by Provider: 06/04/19 19:47 Primary Care Provider: LILIANE FELIPE MD [Primary Care Provider] - Follow up as needed Mode of Arrival: Ambulatory Information source: Patient Notes: 38-year-old female presents to ED for complaint of left flank pain x6 or 7 weeks with nausea and vomiting. She states she is just started her sixth antibiotic for UTI in the last 6 weeks. She states last time she had a "UTI for this long she actually had a infected kidney stone. She states she has had this pain now for 6 weeks and it is not getting better with what they are doing. She states she has had a bilateral tubal ligation. She states she smokes daily, drinks weekly, and has used marijuana for pain relief. I have greeted and performed a rapid initial assessment of this patient. A comprehensive ED assessment and evaluation of the patient, analysis of test re sults and completion of medical decision making process will be conducted by an additional ED providers. TRAVEL OUTSIDE OF THE [place] IN LAST 30 DAYS: No - Related Data Allergies/Adverse Reactions: No Known Allergies Allergy (Verified 06/04/19 19:49) Past Medical History - Past Medical History Cardiac Medical History: Reports: Hx Hypercholesterolemia Denies: Hx Coronary Artery Disease Renal/ Medical History: Reports: Hx Kidney Stones. Denies: Hx Peritoneal Dialysis Psychiatric Medical History: Reports: Hx Depression Past Surgical History: Reports: Hx Genitourinary Surgery - lithrotripsy, Hx Tonsillectomy, Hx Tubal Ligation - Immunizations Immunizations up to date: Yes Hx Diphtheria, Pertussis, Tetanus Vaccination: Yes Physical Exam - Vital signs Vitals: Temp Pulse Resp BP Pulse Ox 98.3 F 98 20 138/72 H 99 06/04/19 19:45 06/04/19 19:45 06/04/19 19:45 06/04/19 19:45 06/04/19 19:45 Course - Vital Signs Vital signs: Temp Pulse Resp BP Pulse Ox 98.3 F 98 20 138/72 H 99 06/04/19 19:45 06/04/19 19:45 06/04/19 19:45 06/04/19 19:45 06/04/19 19:45 Doctor's Discharge - Discharge Referrals: KULKARNILILIANE NOEL MD [Primary Care Provider] - Follow up as needed
[2019-06-04] MEDS ORDERED: ONDANSETRON 4 MG TAB.RAPDIS PO ONE (19:53)
[2019-06-04] MEDS ORDERED: ONDANSETRON 4 MG TAB.RAPDIS ONE (19:54)
[2019-06-04 20:13] LABS: ABSOLUTE BASOPHILS # (AUTO) 0.1 10^3/uL (0.0-0.2); ABSOLUTE EOSINOPHILS # (AUTO) 0.3 10^3/uL (0.0-0.6); ABSOLUTE LYMPHOCYTES (AUTO) 2.7 10^3/uL (0.5-4.7); ABSOLUTE MONOCYTES (AUTO) 0.8 10^3/uL (0.1-1.4); ABSOLUTE NEUT (AUTO) 4.2 10^3/uL (1.7-8.2); BASOPHILS % (AUTO) 0.8 % (0-2); EOSINOPHILS % (AUTO) 3.4 % (0-6); HEMATOCRIT 37.2 % (36.0-47.0); HEMOGLOBIN 12.3 g/dL (12.0-15.5); LYMPHOCYTES % (AUTO) 34.1 % (13-45); MEAN CORPUSCULAR VOLUME 85 fl (80-97); MONOCYTES % (AUTO) 9.9 % (3-13); PLATELET COUNT 276 10^3/uL (150-450); RED BLOOD COUNT 4.38 10^6/uL (3.72-5.28); RED CELL DISTRIBUTION WIDTH 18.5 % (11.5-14.0); SEGMENTED NEUTROPHILS % (AUTO) 51.8 % (42-78); TOTAL CELLS COUNTED % (AUTO) 100 %; WHITE BLOOD COUNT 8.1 10^3/uL (4.0-10.5)
[2019-06-04 20:28] LABS: APPEARANCE,URINE CLOUDY; BILIRUBIN,URINE NEGATIVE (NEGATIVE); COLOR,URINE YELLOW; GLUCOSE, URINE NEGATIVE (NEGATIVE); KETONES,URINE NEGATIVE (NEGATIVE); PROTEIN,URINE NEGATIVE (NEGATIVE); URINE SPECIFIC GRAVITY 1.017; UROBILINOGEN,URINE NEGATIVE mg/dL (<2.0)
--- NOTE | 2019-06-04 21:18 | RADIOLOGY REPORT (SQ) ---
US RETROPERITONEUM EXAM DATE: 06/04/2019 7:51 PM MEAT [employer]ER HISTORY: Flank pain for 6 weeks. History of left renal stent. COMPARISON: 12/12/2018 TECHNIQUE: Grayscale and color Doppler ultrasound images of the kidneys were obtained. FINDINGS: The right kidney measures 9.4 cm in length, which is normal size. The cortex has normal thickness and echogenicity. There is no right-sided kidney stone, mass or hydronephrosis. The left kidney measures 12.4 cm in length, which is normal size. The cortex has normal thickness and echogenicity. There are mildly prominent calyces. No hydronephrosis. The visualized urinary bladder is unremarkable. IMPRESSION: No hydronephrosis or renal stones.
[2019-06-04] MEDS ORDERED: KETOROLAC TROMETHAMINE INJ/PF 30 MG/1 ML SDV IV ONE (21:22)
[2019-06-04] MEDS ORDERED: HYDROMORPHONE HCL INJ/PF 2 MG/ML AMPULE IV ONE (22:10)
--- NOTE | 2019-06-04 23:29 | RADIOLOGY REPORT (SQ) ---
EXAM DESCRIPTION: CT ABDOMEN PELVIS WITHOUT IV CONTRAST COMPLETED DATE/TME: 06/04/2019 21:21 CLINICAL HISTORY: 38 years, Female, L flank pain, look for non-obstructing stone. HCG NEG COMPARISON: 11/13/2018 CT TECHNIQUE: 357 Images stored on PACS. All CT scanners at this facility use dose modulation, iterative reconstruction, and/or weight based dosing when appropriate to reduce radiation dose to as low as reasonably achievable (ALARA). [facility]: Dose Right [facility]: CareDose [facility]: Dose Right [facility]: Teradose 4D [facility]: Smart Technologies LIMITATIONS: None. FINDINGS: Limited evaluation of the lung bases shows calcified granulomata in the posterior right lung base. Osseous structures are grossly intact. Limited evaluation of the liver, spleen, adrenal glands, pancreas is unremarkable. The gallbladder is contracted. Multiple nonobstructing renal calculi bilaterally. No obstructing calculus or hydronephrosis. Right renal cortical scar formation. Normal appendix. Large amount of stool in the colon. No gross evidence for bowel obstruction. No free air. Question trace of free fluid, likely physiologic IMPRESSION: Multiple nonobstructing renal calculi bilaterally. No obstructing calculus or hydronephrosis. Right renal cortical scar formation large amount of stool in the colon TECHNICAL DOCUMENTATION: Quality ID # 436: Final reports with documentation of one or more dose reduction techniques (e.g., Automated exposure control, adjustment of the mA and/or kV according to patient size, use of iterative reconstruction technique) copyright 2010 [employer]- All Rights Reserved
--- NOTE | 2019-06-05 00:36 | ER Document Report ---
ED General - General Chief Complaint: Flank Pain Stated Complaint: VOMITING Time Seen by Provider: 06/04/19 19:47 Primary Care Provider: LILIANE FELIPE MD [NO LOCAL MD] - Follow up as needed Mode of Arrival: Ambulatory Notes: 38-year-old female presents emergency department complaining of a stabbing, shooting, aching pain in her left flank that has been going on for 6 weeks but worsened today. Its associated with hematuria but denies any dysuria or frequency. Patient states that she has also had vomiting with this. Denies any fevers. States that she is actually taking her sixth antibiotic in the past 6 weeks and she has been being treated for a urinary tract infection. Patient's biggest concern is the last time she had a urinary tract infection like this that did not resolve with antibiotics it was actually an infected stone. Patient is worried she may have an infected stone now. Patient also admits vaginal discharge, denies new sexual partners. Patient has a urinalysis with culture from the past several days that showed Klebsiella pneumoniae and it was sensitive to cefazolin and cephalexin as well as ciprofloxacin and Bactrim. She has been started on Keflex, had taken a seven- day course several weeks ago and is now on a 10-day course from her primary care physician. TRAVEL OUTSIDE OF THE [place] IN LAST 30 DAYS: No - Related Data Allergies/Adverse Reactions: No Known Allergies Allergy (Verified 06/04/19 19:49) Home Medications: keflex Past Medical History - General Information source: Patient - Social History Smoking Status: Current Every Day Smoker Chew tobacco use (# tins/day): No Frequency of alcohol use: Social Drug Abuse: Marijuana Family History: Reviewed & Not Pertinent Patient has suicidal ideation: No Patient has homicidal ideation: No - Past Medical History Cardiac Medical History: Reports: Hx Hypercholesterolemia Denies: Hx Coronary Artery Disease Renal/ Medical History: Reports: Hx Kidney Stones. Denies: Hx Peritoneal Dialysis Psychiatric Medical History: Reports: Hx Depression Past Surgical History: Reports: Hx Genitourinary Surgery - lithrotripsy, Hx Tonsillectomy, Hx Tubal Ligation - Immunizations Immunizations up to date: Yes Hx Diphtheria, Pertussis, Tetanus Vaccination: Yes Review of Systems - Review of Systems Constitutional: No symptoms reported Gastrointestinal: See HPI Genitourinary: See HPI Female Genitourinary: See HPI -: Yes All other systems reviewed and negative Physical Exam - Vital signs Vitals: Temp Pulse Resp BP Pulse Ox 98.3 F 98 20 138/72 H 99 06/04/19 19:45 06/04/19 19:45 06/04/19 19:45 06/04/19 19:45 06/04/19 19:45 Interpretation: Normal - Notes Notes: GENERAL: Alert, interacts well. Appears uncomfortable, intermittently vomiting. HEAD: Normocephalic, atraumatic EYES: Pupils equal, round and reactive to light, extraocular movements intact. ENT: Oral mucosa moist, tongue midline. NECK: Full range of motion, supple, trachea midline. LUNGS: Clear to auscultation bilaterally, no wheezes, rales or rhonchi, no respiratory distress. HEART: Regular rate and rhythm, no murmurs, gallops, rubs. ABDOMEN: Soft, mild left lower quadrant abdominal pain, left flank tenderness to percussion, nondistended, bowel sounds present in all 4 quadrants. EXTREMITIES: Moves all 4 extremities spontaneously, no edema, radial and dorsalis pedis pulses 2/4 bilaterally. No cyanosis. NEUROLOGICAL: Alert and oriented x3, normal speech. PSYCH: Normal mood, normal affect. SKIN: Warm, Dry, normal turgor, no rashes or lesions noted. Course - Re-evaluation Re-evalutation: 06/05/19 01:16 CBC unremarkable, test is negative, urinalysis shows large leukocyte esterase, 36 WBCs, 11 squames epithelial cells, chlamydia and gonorrhea tests are negative, renal ultrasound was initially ordered and found to be negative for any signs of hydronephrosis or abscess or stones, I did end up ordering a CT scan the abdomen pelvis given her complicated history and the fact that she has been treated with 6 different antibiotics but she is still showing positive for urinary tract infection and her recurrent stones I was worried we might be missing some sort of renal abscess or stone that was not obstructing, this showed multiple nonobstructing renal calculi bilaterally but there are none in the ureters that would make this a complicated urinary tract infection. It does show a large amount of stool in the colon. Patient is continuing to have pain at this time. And I do not know exactly why she is having pain. I did discuss with her the importance of using Pyridium and that we could think outside the box and try using a muscle relaxer in case the pain in her flank is actually coming from a muscle spasm. Patient states that she has all of his medications at home and she does not want to try anything else. At this point her urine has been sent for culture, I recommend that she continue taking her antibiotics as directed until they are gone, have her primary care physician recheck her urine when the antibiotics are done and that she follow-up with her urologist as an outpatient. When I room I recommended all of these things the patient became quite angry and said "it is just the same shit had all over again, can I leave now?" For the large amount of stool patient is also recommended to use MiraLAX. Patient will be discharged to home. Recommend continuing work-up as an outpatient. - Vital Signs Vital signs: Temp Pulse Resp BP Pulse Ox 97.6 F 61 16 101/51 L 99 06/05/19 00:40 06/05/19 00:40 06/05/19 00:40 06/05/19 00:40 06/05/19 00:40 - Laboratory Result Diagrams: 06/04/19 19:59 Laboratory results interpreted by me: 06/04/19 06/04/19 19:59 19:59 RDW 18.5 H Leukocyte Esterase Rfl LARGE H Discharge - Discharge Clinical Impression: Recurrent urinary tract infection, Renal calculus, bilateral Condition: Stable Disposition: HOME, SELF-CARE Additional Instructions: You do still have a urinary tract infection. We have sent it for culture. Please continue to take your antibiotics from your primary care physician as directed until they are gone. We will call you if your urinary tract infection today is not sensitive to the Keflex that you are already on. Your CAT scan shows that you have multiple stones in your kidneys but none of these are in your ureters which would be causing pain or obstruction or any complication to urinary tract infection. You also did not have any signs of gonorrhea or chlamydia today on lab work. It is very important that you continue to follow-up with your primary care physician as an outpatient for continuing work-up of your recurrent urinary tract infection that is not responding as it should. Please return for fevers, worsening pain or any new or concerning symptoms. Your CAT scan also showed that you have a moderate amount of stool in your colon, it would be a good idea to try MiraLAX. Please dissolve 1 scoop of MiraLAX in a glass of water once a day to treat constipation. You may increase to twice a day if needed to create soft bowel movements and you may decrease to every other day if you develop diarrhea. Referrals: LILIANE FELIPE MD [NO LOCAL MD] - Follow up as needed
[2019-06-05 00:49] LABS: CHLAM PCR NOT DETECTED (NOT DETECT)
[2019-06-05] MEDS ORDERED: HYDROCODONE/ACETAMINOPHEN 5-325 MG TABLET PO ONE (01:00)
[2019-06-05] MEDS ORDERED: PHENAZOPYRIDINE HCL 200 MG TABLET PO ONE (01:00)
[2019-06-05 01:27] VITALS: BP 115/66
== END 2019-06-05 01:27 | disposition home or self-care (01) ==
LOC: ER 19:35
DX: N39.0 Urinary tract infection, site not specified (principal); N20.0 Calculus of kidney; R11.10 Vomiting, unspecified; R10.9 Unspecified abdominal pain; F17.200 Nicotine dependence, unspecified, uncomplicated; E78.00 Pure hypercholesterolemia, unspecified
CPT/HCPCS: 99284; 96374; 96375; 36415; 84703; 85025; 81001; 87491; 87591; 76770; 74176; S0119; J1885; J1170; J3490

== ENCOUNTER 2019-07-30 17:14 | Emergency (ER) | payer MEDICAID ==
[2019-07-30 17:19] VITALS: BP 121/75
[2019-07-30] MEDS ORDERED: LIDOCAINE 1% INJ-PF (10 MG/ML) 30 ML SDV INJ ONE (17:31)
--- NOTE | 2019-07-30 17:37 | ER Document Report ---
ED Hand/Wrist Injury - General Chief Complaint: Laceration Stated Complaint: LEFT HAND LACERATION Time Seen by Provider: 07/30/19 17:31 Primary Care Provider: LEELEE GUERRA FNP-C [NO LOCAL MD] - Follow up as needed Mode of Arrival: Ambulatory Information source: Patient Notes: 38-year-old female presented to ED for laceration to the left thumb area. She states she was removing tile scraper slipped and cut her left thumb. She does have about a 3 cm laceration to the left thumb. She is alert oriented respirations regular nonlabored speaking in full sentences. TRAVEL OUTSIDE OF THE [place] IN LAST 30 DAYS: No - HPI Injury to: Thumb Onset: Just prior to arrival - Left Where: Home Timing: Still present Quality of pain: Sharp Severity: Moderate Pain Level: 4 Context: Laceration - Related Data Allergies/Adverse Reactions: No Known Allergies Allergy (Verified 06/04/19 19:49) Past Medical History - General Information source: Patient - Social History Smoking Status: Current Every Day Smoker Frequency of alcohol use: None Drug Abuse: None Lives with: Family Family History: Reviewed & Not Pertinent Patient has suicidal ideation: No Patient has homicidal ideation: No - Past Medical History Cardiac Medical History: Reports: Hx Hypercholesterolemia Pulmonary Medical History: Reports: None EENT Medical History: Reports: None Neurological Medical History: Reports: None Endocrine Medical History: Reports: None Renal/ Medical History: Reports: Hx Kidney Stones Malignancy Medical History: Reports: None GI Medical History: Reports: None Musculoskeletal Medical History: Reports Hx Musculoskeletal Trauma Skin Medical History: Reports None Psychiatric Medical History: Reports: Hx Depression Traumatic Medical History: Reports: None Infectious Medical History: Reports: None Past Surgical History: Reports: Hx Genitourinary Surgery - lithrotripsy, Hx Kidney (Renal Surgery) - Multiple kidney surgeries for stones, Hx Tonsillectomy, Hx Tubal Ligation - Immunizations Immunizations up to date: Yes Hx Diphtheria, Pertussis, Tetanus Vaccination: Yes Review of Systems - Review of Systems Constitutional: No symptoms reported EENT: No symptoms reported Cardiovascular: No symptoms reported Respiratory: No symptoms reported Gastrointestinal: No symptoms reported Genitourinary: No symptoms reported Female Genitourinary: No symptoms reported Musculoskeletal: Other - Laceration to the left lateral thumb Skin: Other - Laceration to the left arm Hematologic/Lymphatic: No symptoms reported Neurological/Psychological: No symptoms reported -: Yes All other systems reviewed and negative Physical Exam - Vital signs Vitals: Temp Pulse Resp BP Pulse Ox 97.6 F 88 20 121/75 100 07/30/19 17:18 07/30/19 17:18 07/30/19 17:18 07/30/19 17:18 07/30/19 17:18 Interpretation: Normal - General General appearance: Appears well, Alert - HEENT Head: Normocephalic, Atraumatic Eyes: Normal Pupils: PERRL - Respiratory Respiratory status: No respiratory distress Chest status: Nontender Breath sounds: Normal Chest palpation: Normal - Cardiovascular Rhythm: Regular Heart sounds: Normal auscultation Murmur: No - Abdominal Inspection: Normal Distension: No distension Bowel sounds: Normal Tenderness: Nontender Organomegaly: No organomegaly - Back Back: Normal, Nontender - Extremities General upper extremity: Normal color, Normal ROM, Normal temperature General lower extremity: Normal inspection, Nontender, Normal color, Normal ROM, Normal temperature, Normal weight bearing. No: Sofie's sign Hand: Tender, Laceration - 2 cm laceration to the lateral aspect of the left thumb, No evidence of human bite, No evidence of FB - Neurological Neuro grossly intact: Yes Cognition: Normal Orientation: AAOx4 Apolinar Coma Scale Eye Opening: Spontaneous Apolinar Coma Scale Verbal: Oriented [place] Coma Scale Motor: Obeys Commands Apolinar Coma Scale Total: 15 Speech: Normal Motor strength normal: LUE, RUE, LLE, RLE Sensory: Normal - Psychological Associated symptoms: Normal affect, Normal mood - Skin Skin Temperature: Warm Skin Moisture: Dry Skin Color: Normal Skin irregularity: Laceration - Left thumb lateral about 3 cm Course - Vital Signs Vital signs: Temp Pulse Resp BP Pulse Ox 97.6 F 88 20 121/75 100 07/30/19 17:18 07/30/19 17:18 07/30/19 17:18 07/30/19 17:18 07/30/19 17:18 Procedures - Laceration/Wound Repair Left Finger Thumb Time completed: 18:10 Wound length (cm): 2 Wound's Depth, Shape: Superficial, Linear Laceration pre-procedure: Sterile PPE donned, Sterile drapes applied, Shur-Clens applied Anesthetic type: 1% Lidocaine Volume Anesthetic (mLs): 4 Wound explored: Contaminated Irrigated w/ Saline (mLs): 400 Wound Repaired With: Sutures Suture Size/Type: 4:0, Ethilon Post-procedure wound care: Sterile dressing applied, Splint applied Post-procedure NV exam normal: Yes Complications: No Discharge - Discharge Clinical Impression: Laceration of thumb, left Qualifiers: Encounter type: initial encounter Damage to nail status: without damage Foreign body presence: without foreign body Qualified Code(s): S61.012A - Laceration without foreign body of left thumb without damage to nail, initial encounter Condition: Stable Disposition: HOME, SELF-CARE Additional Instructions: Hand Laceration A laceration on the hand can present special problems. It may be difficult to keep the wound dry. Motion of the fingers can disturb the healing edges. Your work may involve exposure to damaging chemicals or water. Keep the wound clean and dry. If you can't keep the cut dry, undisturbed, and free of chemical exposure, please discuss this with the doctor. If any water or chemical gets onto the dressing, remove it, blot the wound dry, then apply a fresh bandage. Dressings should be changed every day. If you feel the stitches pulling as you move the hand, a splint or other form of protection is needed. If any signs of infection occur (swelling, redness, increasing tenderness, red streaks, tender lumps in the armpit, or fever), see the doctor immediately. SOAP CLEANSING: Gently wash the wound daily using a mild soap (like Ivory, Phisoderm, Neutrogena). Use warm water, rubbing gently until all debris, ooze, and crusting have been washed from the wound. Allow to dry briefly (about 10 minutes) after cleaning. Repeat this cleansing at least three times a day for the first two days and then once or twice a day. ANTIBIOTIC OINTMENT PROTECTION: Your wounds are such that dressing them is not practical or optional. After cleansing, you should apply a thin coating of antibiotic ointment (Bacitracin, not Neosporin) to the wounds at least three times daily. This lessens infection risk, and may decrease the amount of scarring. Use a q-tip or dull butter knife, not your finger, to apply this ointment. Any debris or ooze which builds up in the ointment should be gently rubbed off with a sterile gauze pad. Harder crusting may need to be gently scrubbed off with a clean wash cloth with soap and warm water, perhaps applying a warm, wet wash cloth to the wound for ten minutes first. Development of redness, severe itching, or blistering may mean allergy to the ointment. See the doctor. Finger splint was applied to your thumb to prevent movement of the thumb. Please remove the splint after 24 hours clean your wound well dressing and reapply the splint. Please clean your finger 3 times a day and reapply the spl int for at least 5 days. After that you can remove the splint as long as you do not put any pressure on the thumb. PROPHYLACTIC ANTIBIOTIC: The antibiotics which have been prescribed are designed to decrease the risk of infection. Only certain types of wounds benefit from this -- the typical cut, scrape, or burn DOES NOT require antibiotics. Of course, infection can still occur despite the use of prophylactic antibiotics. Your wound will heal with less chance of an infectious complication if you take the medication as directed. The most important dose is the FIRST dose, so don't delay filling the prescription! FOLLOW-UP CARE: Please return in __3___ days for an infection check and dressing change. Your sutures should be removed in _10___ days. To facilitate a timely removal of your sutures, you may return to the Emergency Department at [facility]. You do not need to call for an appointment, but the best time to come in for suture removal is early in the morning. If you have been referred to another physician for follow-up care, call that physicians office for an appointment as you were instructed. If you experience a significant change in your laceration, or if you are concerned there may be an infection (swelling, redness, drainage, increasing tenderness, red streaks, tender lumps in the armpit or groin above the laceration, or fever), return to the Emergency Department immediately re-evaluation. Prescriptions: Fluconazole [Diflucan] 100 mg PO ONCE #1 tablet Cephalexin Monohydrate [Keflex 500 mg Capsule] 500 mg PO Q6H 5 Days capsule Forms: Smoking Cessation Education Referrals: LEELEE GUERRA FNP-C [NO LOCAL MD] - Follow up as needed
--- NOTE | 2019-07-30 18:03 | RADIOLOGY REPORT (SQ) ---
EXAM DESCRIPTION: HAND LEFT 3 VIEWS COMPLETED DATE/TIME: 07/30/2019 5:47 pm REASON FOR STUDY: laceration with tile knife COMPARISON: None. EXAM PARAMETERS: NUMBER OF VIEWS: Three views. TECHNIQUE: AP, lateral and oblique radiographic images acquired of the left hand. LIMITATIONS: None. FINDINGS: MINERALIZATION: Normal. BONES: No acute fracture or dislocation. No worrisome bone lesions. JOINTS: No effusions. SOFT TISSUES: No soft tissue swelling. No foreign body. OTHER: No other significant finding. IMPRESSION: NEGATIVE STUDY OF THE LEFT HAND. NO RADIOGRAPHIC EVIDENCE OF ACUTE INJURY. TECHNICAL DOCUMENTATION: JOB ID: [id number] [employer]- All Rights Reserved Reading location - IP/workstation name: [email or web address]
[2019-07-30] MEDS ORDERED: CEPHALEXIN 500 MG CAPSULE PO ONE (18:16)
--- NOTE | 2019-07-30 18:54 | ER Document Report ---
Doctor's Note Notes: 07/30/19 18:53 There were 3 sutures placed in the laceration.
== END 2019-07-30 18:41 | disposition home or self-care (01) ==
LOC: ER 17:14
PROC: 0HQGXZZ Repair Left Hand Skin, External Approach (ICD-10-PCS; principal; 2019-07-30)
DX: S61.012A Laceration without foreign body of left thumb without damage to nail, initial encounter (principal); W27.8XXA Contact with other nonpowered hand tool, initial encounter; F17.200 Nicotine dependence, unspecified, uncomplicated
CPT/HCPCS: 99282; 73130; 12001; J3490